=== PATIENT | male | born 1935 | race Caucasian/White ===

== ENCOUNTER 2017-06-04 15:14 | Inpatient (IN) | payer MEDICARE ==
[~2017-06-04] VITALS: Ht 175.3 cm; Wt 72.6 kg
[2017-06-04 15:43] LABS: BASO # 0.1 x10^3/uL (0.0-0.2); BASO % 1 % (0-3); EOS # 0.1 x10^3/uL (0.0-0.7); EOS % 2 % (0-3); HEMATOCRIT 46.6 % (39.0-53.0); HEMOGLOBIN 15.8 g/dL (13.0-17.5); LYMPH # 1.2 x10^3/uL (1.0-4.8); LYMPH % 18 % (24-48); MEAN CORPUSCULAR HEMOGLOBIN 31 pg (25-35); MEAN CORPUSCULAR HGB CONC 34 g/dL (31-37); MEAN CORPUSCULAR VOLUME 92 fL (79-100); MONO # 0.6 x10^3/uL (0.0-1.1); MONO % 9 % (0-9); NEUT # 4.8 x10^3uL (1.8-7.7); NEUT % 70 % (31-73); PLATELET COUNT 244 x10^3/uL (140-400); RED BLOOD COUNT 5.05 x10^6/uL (4.30-5.70); RED CELL DISTRIBUTION WIDTH 13.8 % (11.5-14.5); WHITE BLOOD COUNT 6.8 x10^3/uL (4.0-11.0)
[2017-06-04 15:55] LABS: ALBUMIN 3.9 g/dL (3.4-5.0); ALBUMIN/GLOBULIN RATIO 1.1 (1.0-1.7); CALCIUM 8.9 mg/dL (8.5-10.1); CREATININE 1.2 mg/dL (0.7-1.3); GFR 58.1; MAGNESIUM 2.3 mg/dL (1.8-2.4); POTASSIUM 3.4 mmol/L (3.5-5.1); TOTAL BILIRUBIN 0.4 mg/dL (0.2-1.0); TOTAL PROTEIN 7.4 g/dL (6.4-8.2)
[2017-06-04 16:01] LABS: BILIRUBIN,URINE NEG (NEG); CLARITY,URINE CLEAR; COLOR,URINE YELLOW; GLUCOSE,URINE NEG (NEG); NITRITE,URINE NEG (NEG); UROBILINOGEN,URINE 0.2 mg/dL (0.2 mg/dL)
[2017-06-04 16:02] LABS: BACTERIA,URINE 0 /HPF (0-FEW); SQUAMOUS EPITHELIAL CELL,UR OCC /LPF
--- NOTE | 2017-06-04 16:16 | PHYS DOC ---
Past History Past Medical History: CVA, Depression, Other Past Surgical History: Appendectomy Alcohol Use: None Drug Use: None Adult General Chief Complaint Chief Complaint: PSYCH EVALUATION [facility] Patient is a 82 year old M who presents medical clearance for psychiatric admission. Franco has no pain at this time. He denies shortness of breath or abdominal pain. He has no rash. He denies changes in his bowel or bladder habits. He has no other associated signs or symptoms. He has no other exacerbating or alleviating factors. Review of Systems Review of Systems Constitutional: Denies fever or chills [] Eyes: Denies change in visual acuity, redness, or eye pain [] HENT: Denies nasal congestion or sore throat [] Respiratory: Denies cough or shortness of breath [] Cardiovascular: No additional information not addressed in [facility] [] GI: Denies abdominal pain, nausea, vomiting, bloody stools or diarrhea [] : Denies dysuria or hematuria [] Musculoskeletal: Denies back pain or joint pain [] Integument: Denies rash or skin lesions [] Neurologic: Denies headache, focal weakness or sensory changes [] Endocrine: Denies polyuria or polydipsia [] Family History Family History Noncontributory Current Medications Current Medications Medications reviewed Allergies Allergies Allergies Coded Allergies Type Severity Reaction Last Updated Verified No Known Drug Allergies 06/04/17 No Physical Exam Physical Exam Constitutional: Well developed, well nourished, no acute distress, non-toxic appearance. [] HENT: Normocephalic, atraumatic, bilateral external ears normal, oropharynx moist, no oral exudates, nose normal. [] Eyes: PERRLA, EOMI, conjunctiva normal, no discharge. [] Neck: Normal range of motion, no tenderness, supple, no stridor. [] Cardiovascular:Heart rate regular rhythm, no murmur [] Lungs & Thorax: Bilateral breath sounds clear to auscultation [] Abdomen: Bowel sounds normal, soft, no tenderness, no masses, no pulsatile masses. [] Skin: Warm, dry, no erythema, no rash. [] Back: No tenderness, no CVA tenderness. [] Extremities: No tenderness, no cyanosis, no clubbing, ROM intact, no edema. [] Neurologic: Alert and oriented X 3, normal motor function, normal sensory function, no focal deficits noted. [] Current Patient Data Vital Signs Vital Signs Date Time Temp Pulse Resp B/P (MAP) Pulse Ox O2 Delivery O2 Flow Rate FiO2 06/04/17 15:42 98.0 94 20 99 Lab Results Laboratory Tests Test 06/04/17 15:15 06/04/17 15:26 Urine Collection Type Unknown Urine Color Yellow Urine Clarity Clear Urine pH 6.5 Urine Specific [place] 1.015 Urine Protein Neg (NEG-TRACE) Urine Glucose (UA) Neg mg/dL (NEG) Urine Ketones (Stick) Trace mg/dL (NEG) Urine Blood Neg (NEG) Urine Nitrite Neg (NEG) Urine Bilirubin Neg (NEG) Urine Urobilinogen Dipstick 0.2 mg/dL (0.2 mg/dL) Urine Leukocyte Esterase Trace (NEG) Urine RBC 3-5 /HPF (0-2) Urine WBC 5-10 /HPF (0-4) Urine Squamous Epithelial Cells Occ /LPF Urine Bacteria 0 /HPF (0-FEW) Urine Mucus Mod /LPF White Blood Count 6.8 x10^3/uL (4.0-11.0) Red Blood Count 5.05 x10^6/uL (4.30-5.70) Hemoglobin 15.8 g/dL (13.0-17.5) Hematocrit 46.6 % (39.0-53.0) Mean Corpuscular Volume 92 fL (79-100) Mean Corpuscular Hemoglobin 31 pg (25-35) Mean Corpuscular Hemoglobin Concent 34 g/dL (31-37) Red Cell Distribution Width 13.8 % (11.5-14.5) Platelet Count 244 x10^3/uL (140-400) Neutrophils (%) (Auto) 70 % (31-73) Lymphocytes (%) (Auto) 18 % (24-48) L Monocytes (%) (Auto) 9 % (0-9) Eosinophils (%) (Auto) 2 % (0-3) Basophils (%) (Auto) 1 % (0-3) Neutrophils # (Auto) 4.8 x10^3uL (1.8-7.7) Lymphocytes # (Auto) 1.2 x10^3/uL (1.0-4.8) Monocytes # (Auto) 0.6 x10^3/uL (0.0-1.1) Eosinophils # (Auto) 0.1 x10^3/uL (0.0-0.7) Basophils # (Auto) 0.1 x10^3/uL (0.0-0.2) Sodium Level 143 mmol/L (136-145) Potassium Level 3.4 mmol/L (3.5-5.1) L Chloride Level 105 mmol/L (98-107) Carbon Dioxide Level 31 mmol/L (21-32) Anion Gap 7 (6-14) Blood Urea Nitrogen 15 mg/dL (8-26) Creatinine 1.2 mg/dL (0.7-1.3) Estimated GFR (Cockcroft-Gault) 58.1 BUN/Creatinine Ratio 13 (6-20) Glucose Level 80 mg/dL (70-99) Calcium Level 8.9 mg/dL (8.5-10.1) Magnesium Level 2.3 mg/dL (1.8-2.4) Total Bilirubin 0.4 mg/dL (0.2-1.0) Aspartate Amino Transferase (AST) 21 U/L (15-37) Alanine Aminotransferase (ALT) 31 U/L (16-63) Alkaline Phosphatase 97 U/L (46-116) Total Protein 7.4 g/dL (6.4-8.2) Albumin 3.9 g/dL (3.4-5.0) Albumin/Globulin Ratio 1.1 (1.0-1.7) EKG EKG Normal sinus rhythm Radiology/Procedures Radiology/Procedures [] Course & Med Decision Making Course & Med Decision Making Pertinent Labs and Imaging studies reviewed. (See chart for details) [] Dragon Disclaimer Dragon Disclaimer This chart was dictated in whole or in part using Voice Recognition software in a busy, high-work load, and often noisy Emergency Department environment. It may contain unintended and wholly unrecognized errors or omissions. Departure Departure: Impression: Primary Impression: Encounter for medical screening examination Disposition: 65 XFER TO PSYCH HOSP/UNIT Condition: STABLE Referrals: NON,STAFF (PCP) CRYS PEREIRA MD Jun 04, 2017 16:16
[2017-06-04 17:46] VITALS: BP 157/96
[2017-06-04] MEDS ORDERED: MAGNESIUM HYDROXIDE 2,400 MG/30 ML ORAL.SUSP. PO PRN (18:00)
[2017-06-04] MEDS ORDERED: METHYL SALICYLATE/MENTHOL TOPICAL OINTMENT 29GM TUBE. TP PRN (18:00)
[2017-06-04] MEDS ORDERED: ACETAMINOPHEN 325 MG TABLET PO PRN (18:00)
[2017-06-04] MEDS ORDERED: MAG HYDROX/AL HYDROX/SIMETH 30 ML ORAL.SUSP PO PRN (18:00)
--- NOTE | 2017-06-04 20:27 | PDOC ---
Exam Toni Demential Exam: Toni Note: Please also refer to the separate dictated note~for this date of service dictated separately.~Patient seen individually. Discussed the patient with Nursing staff reviewed the chart.~Reviewed interim history and current functioning. Reviewed vital signs,~Labs/ Radiology~and current medications noted below. Continue current treatment with the changes noted in the dictated addendum note Assessment: Vital Signs: Vital Signs Date Time Temp Pulse Resp B/P (MAP) Pulse Ox O2 Delivery O2 Flow Rate FiO2 06/04/17 17:46 97.9 95 20 157/96 (116) 98 I&O Intake and Output 06/05/17 07:00 Intake Total 240 ml Balance 240 ml Intake Oral 240 ml Labs: Laboratory Tests Test 06/04/17 15:15 06/04/17 15:26 Urine Collection Type Unknown Urine Color Yellow Urine Clarity Clear Urine pH 6.5 Urine Specific [place] 1.015 Urine Protein Neg (NEG-TRACE) Urine Glucose (UA) Neg mg/dL (NEG) Urine Ketones (Stick) Trace mg/dL (NEG) Urine Blood Neg (NEG) Urine Nitrite Neg (NEG) Urine Bilirubin Neg (NEG) Urine Urobilinogen Dipstick 0.2 mg/dL (0.2 mg/dL) Urine Leukocyte Esterase Trace (NEG) Urine RBC 3-5 /HPF (0-2) Urine WBC 5-10 /HPF (0-4) Urine Squamous Epithelial Cells Occ /LPF Urine Bacteria 0 /HPF (0-FEW) Urine Mucus Mod /LPF White Blood Count 6.8 x10^3/uL (4.0-11.0) Red Blood Count 5.05 x10^6/uL (4.30-5.70) Hemoglobin 15.8 g/dL (13.0-17.5) Hematocrit 46.6 % (39.0-53.0) Mean Corpuscular Volume 92 fL (79-100) Mean Corpuscular Hemoglobin 31 pg (25-35) Mean Corpuscular Hemoglobin Concent 34 g/dL (31-37) Red Cell Distribution Width 13.8 % (11.5-14.5) Platelet Count 244 x10^3/uL (140-400) Neutrophils (%) (Auto) 70 % (31-73) Lymphocytes (%) (Auto) 18 % (24-48) L Monocytes (%) (Auto) 9 % (0-9) Eosinophils (%) (Auto) 2 % (0-3) Basophils (%) (Auto) 1 % (0-3) Neutrophils # (Auto) 4.8 x10^3uL (1.8-7.7) Lymphocytes # (Auto) 1.2 x10^3/uL (1.0-4.8) Monocytes # (Auto) 0.6 x10^3/uL (0.0-1.1) Eosinophils # (Auto) 0.1 x10^3/uL (0.0-0.7) Basophils # (Auto) 0.1 x10^3/uL (0.0-0.2) Sodium Level 143 mmol/L (136-145) Potassium Level 3.4 mmol/L (3.5-5.1) L Chloride Level 105 mmol/L (98-107) Carbon Dioxide Level 31 mmol/L (21-32) Anion Gap 7 (6-14) Blood Urea Nitrogen 15 mg/dL (8-26) Creatinine 1.2 mg/dL (0.7-1.3) Estimated GFR (Cockcroft-Gault) 58.1 BUN/Creatinine Ratio 13 (6-20) Glucose Level 80 mg/dL (70-99) Calcium Level 8.9 mg/dL (8.5-10.1) Magnesium Level 2.3 mg/dL (1.8-2.4) Total Bilirubin 0.4 mg/dL (0.2-1.0) Aspartate Amino Transferase (AST) 21 U/L (15-37) Alanine Aminotransferase (ALT) 31 U/L (16-63) Alkaline Phosphatase 97 U/L (46-116) Total Protein 7.4 g/dL (6.4-8.2) Albumin 3.9 g/dL (3.4-5.0) Albumin/Globulin Ratio 1.1 (1.0-1.7) Current Medications: Meds: Current Medications Acetaminophen (Tylenol) 650 mg PRN Q6HRS PRN PO PAIN / TEMP; Start 06/04/17 at 18:00 Multi-Ingredient Ointment (Analgesic [place]) 1 janell PRN QID PRN TP MUSCLE PAIN; Start 06/04/17 at 18:00 Al Hydroxide/Mg Hydroxide (Mylanta Plus Xs) 15 ml PRN AFTMEALHC PRN PO DYSPEPSIA; Start 06/04/17 at 18:00 Magnesium Hydroxide (Milk Of Magnesia) 2,400 mg PRN QHS PRN PO CONSTIPATION; Start 06/04/17 at 18:00 Mirtazapine (Remeron) 7.5 mg QHS PO ; Start 06/04/17 at 21:00 Sertraline HCl (Zoloft) 50 mg DAILY PO ; Start 06/05/17 at 09:00 Diagnosis: Problems: (1) Anxiety disorder (2) Dementia in Alzheimer's disease with delusions (3) Dementia in Alzheimer's disease with depression (4) Dementia, vascular, with delusions (5) Impulse control disorder (6) Dementia, vascular, with depression ESTEFANIA HOLT MD Jun 04, 2017 20:27
[2017-06-04] MEDS: MIRTAZAPINE 7.5 MG TABLET. PO SCH (20:45)
[2017-06-05] MEDS: traZODone 100 MG TABLET. PO PRN ×2 (00:04→19:12)
[2017-06-05] MEDS ORDERED: RIVA1PAT5 TD (01:18)
[2017-06-05] MEDS ORDERED: SERT25TA PO (01:18)
[2017-06-05] MEDS: RIVASTIGMINE 13.3MG PATCH. TD SCH (09:08)
[2017-06-05] MEDS: SERTRALINE 50 MG TABLET. PO SCH (09:08)
--- NOTE | 2017-06-05 10:42 | RAD ---
Indication change in mental status. 0 noncontrast images of the head were obtained. No prior imaging of the head is available. The calvarium appears unremarkable. The visualized paranasal sinuses are unremarkable. There is no subdural or epidural hematoma. There is generalized atrophy. There is some increased lucency in the deep white matter likely reflecting microvascular disease. There is mild hydrocephalus. There is no mass or midline shift. No hemorrhage is seen. An acute intracranial finding is not apparent. IMPRESSION: Chronic changes. Mild hydrocephalus. No acute finding seen PQRS Compliance Statement: One or more of the following individualized dose reduction techniques were utilized for this examination: 1. Automated exposure control 2. Adjustment of the mA and/or kV according to patient size 3. Use of iterative reconstruction technique
--- NOTE | 2017-06-05 12:48 | HP ---
ADMIT DATE: 06/04/2017 PSYCHIATRIC ADMISSION HISTORY/EVALUATION This late entry, date of service 06/04/2017, covers elements not covered in my initial note of 06/04/2017. I met with the patient evening of 06/04/2017. Discussed with nursing staff several times during the day. Prior to the patient's admission to gather historical information for admission criteria evaluation including information from Karishma Lloyd, nurse practitioner, patient's outpatient provider and family and after the patient's admission to the unit as well. IDENTIFYING DATA: The patient is an 82-year-old male referred by Karishma Lloyd, nurse practitioner, his outpatient provider at the [facility] and admitted by his daughter, Ying Gomez, power of silver holloware assembler and his , Bruce Thomas. On account of worsening symptoms of depression, confusion, having multiple falls, mood swings, being aggressive towards the family, marked insomnia. The patient had failed outpatient psychiatric interventions. CHIEF COMPLAINT: "There is nothing wrong with me." HISTORY OF PRESENT ILLNESS: The patient has a history of some short term memory deficits, do at times during the day he can seem quite oriented, at other times he is barely oriented to situation. He has been increasingly angry, paranoid, suspicious with his family. Behaviors noted to be unmanageable. He has been agitated, complains of insomnia, having frequent falls and tremors, although he denies any problems whatsoever. Symptoms have worsened since his stroke in 09/2015 and he has fecal urgency as part of this as well. PAST PSYCHIATRIC HISTORY: As above. MEDICAL HISTORY: Status post CVA, right-sided stroke 10/04, repeated falls, tremors with a family history of Parkinson's, bowel urgency. DRUG ALLERGIES: Negative. CODE STATUS: Full. DIET: Regular, AMBULATES: Ad yolanda. CURRENT PSYCHOTROPICS: Exelon patch 13.3 mg a day, Zoloft 25 mg a day. He was on Abilify 2 mg a day, has since been discontinued. FAMILY HISTORY: Positive for suicide in his son/grandson and another child attempted suicide. SOCIAL HISTORY: The patient is , lives at home with his . 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 No alcohol or drug abuse history. MENTAL STATUS EXAMINATION: The patient was seen individually evening of 06/04/2017. He is oriented to himself, at times to situation, though at other times he believes this is his house and other people are intruding in it per nursing report. To the nursing staff he indicated the year is 2016, but when I asked him, he felt the year was 192. Speech is coherent, rapid at times. Abstraction fair, computation impaired, language function intact. Short term memory impaired. Mood and affect remained somewhat labile, anxious. No active suicidal or homicidal ideation. After I had evaluated the patient and before I left the unit, the patient became quite agitated, was loud, threatening towards the nursing staff, tried to follow me around the unit, believed everyone was in his house here and wanted them out, quite delusional, suspicious, but when the acute episode passes, he is more oriented. REVIEW OF SYSTEMS: No CV, , pulmonary, eye, ENT system symptoms on review. Gait unsteady. IMPRESSION: Major neurocognitive disorder, possibly vascular, rule out Lewy body with depression, delusion, behavioral disturbance; anxiety disorder, unspecified; impulse control disorder, unspecified; psychotic disorder, unspecified. Rest as above. PLAN: Admit to the geropsychiatry unit at [facility]. I will see the patient daily individually from a psychiatric standpoint, medical followup per Dr. Moffett/Dr. Rodarte. Continue the patient on his current psychotropics, start Remeron 7.5 mg p.o. at bedtime and increase Zoloft to 50 mg a day. Neurology consult with Dr. Duarte to assess for Parkinson's and treat if indicated. We will check a CT head to make sure there is no recent change in his cerebrovascular status, status post CVA to account for his change in mentation and aggression. We will make further treatment recommendations post baseline assessment. MAN Alo HOLT MD DR: ANJALI/taty JOB#: [id number] / [id number]
[2017-06-05 14:37] LABS: THYROID STIM HORMONE (TSH) 3.723 uIU/mL (0.358-3.740)
[2017-06-05 16:21] VITALS: BP 93/64
[2017-06-05] MEDS: MIRTAZAPINE 7.5 MG TABLET. PO SCH (19:12)
[2017-06-05] MEDS: MEMANTINE 5 MG TABLET. PO SCH (19:31)
[2017-06-05] MEDS: QUEtiapine 25 MG TABLET. PO SCH (19:32)
--- NOTE | 2017-06-05 20:57 | PDOC ---
Exam Toni Demential Exam: Toni Note: Please also refer to the separate dictated note~for this date of service dictated separately.~Patient seen individually. Discussed the patient with Nursing staff reviewed the chart.~Reviewed interim history and current functioning. Reviewed vital signs,~Labs/ Radiology~and current medications noted below. Continue current treatment with the changes noted in the dictated addendum note Assessment: Vital Signs: Vital Signs Date Time Temp Pulse Resp B/P (MAP) Pulse Ox O2 Delivery O2 Flow Rate FiO2 06/05/17 16:21 98.0 92 18 93/64 (74) 97 I&O Intake and Output 06/06/17 06:59 Intake Total 1080 ml Balance 1080 ml Intake Oral 1080 ml Current Medications: Meds: Current Medications Acetaminophen (Tylenol) 650 mg PRN Q6HRS PRN PO PAIN / TEMP; Start 06/04/17 at 18:00 Multi-Ingredient Ointment (Analgesic [place]) 1 janell PRN QID PRN TP MUSCLE PAIN; Start 06/04/17 at 18:00 Al Hydroxide/Mg Hydroxide (Mylanta Plus Xs) 15 ml PRN AFTMEALHC PRN PO DYSPEPSIA; Start 06/04/17 at 18:00 Magnesium Hydroxide (Milk Of Magnesia) 2,400 mg PRN QHS PRN PO CONSTIPATION; Start 06/04/17 at 18:00 Mirtazapine (Remeron) 7.5 mg QHS PO Last administered on 06/05/17 19:12; Start 06/04/17 at 21:00 Sertraline HCl (Zoloft) 50 mg DAILY PO Last administered on 06/05/17 09:08; Start 06/05/17 at 09:00 Trazodone HCl (Desyrel) 50 mg PRN QHS PRN PO insomnia Last administered on 19:12; Start 06/05/17 at 00:00 Olanzapine (ZyPREXA ZYDIS) 2.5 mg PRN Q2HR PRN PO agitation, psychosis Last administered on 06/05/17 19:12; Start 06/05/17 at 00:00 Rivastigmine (Exelon 13.3mg) 1 patch DAILY TD Last administered on 06/05/17 09:08; Start 06/05/17 at 09:00 Memantine (Namenda) 5 mg BID PO Last administered on 06/05/17 19:31; Start 06/05/17 at 21:00 Quetiapine Fumarate (SEROquel) 25 mg QHS PO Last administered on 06/05/17 19: 32; Start 06/05/17 at 21:00 Active Scripts Active Reported Zoloft (Sertraline Hcl) 25 Mg Tablet 25 Mg PO DAILY PRN Zoloft (Sertraline Hcl) 25 Mg Tablet 25 Mg PO DAILY EXELON 13.3mg/24hr (Rivastigmine) 1 Each Patch.td24 1 Patch TD DAILY Diagnosis: Problems: (1) Anxiety disorder (2) Dementia in Alzheimer's disease with delusions (3) Dementia in Alzheimer's disease with depression (4) Dementia, vascular, with delusions (5) Dementia, vascular, with depression (6) Impulse control disorder ESTEFANIA HOLT MD Jun 05, 2017 20:57
[2017-06-06 06:37] VITALS: BP 127/91
--- NOTE | 2017-06-06 10:31 | EKG ---
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
[2017-06-06] MEDS: RIVASTIGMINE 13.3MG PATCH. TD SCH (11:54)
[2017-06-06] MEDS: MEMANTINE 5 MG TABLET. PO SCH ×2 (11:54→19:30)
[2017-06-06] MEDS: SERTRALINE 50 MG TABLET. PO SCH (11:54)
[2017-06-06] MEDS: QUEtiapine 25 MG TABLET. PO SCH ×3 (14:00→19:30)
[2017-06-06 16:23] VITALS: BP 144/83
--- NOTE | 2017-06-06 17:17 | HP ---
ADMIT DATE: 06/04/2017 REASON FOR ADMISSION TO THE SENIOR BEHAVIORAL UNIT: This is an 82-year-old male who I believe has lived independently with his who has had increasing falls, depression, mood swings, aggressiveness with family, insomnia and agitated. The patient himself insisted that the hospital where he is right now is his home and he said he had not seen his this morning. PAST MEDICAL HISTORY: Mild stroke, insomnia. 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 MEDICATIONS: Omeprazole 2 mg daily, Exelon patch, rivastigmine 13.3 mg patch and sertraline 25 mg a day. Again, the patient is able to give really a full history. PAST SURGICAL HISTORY: Tonsillectomy, bilateral cataracts, appendectomy. SOCIAL HISTORY: The patient states he has a son who committed suicide many years ago. He states he smoked a little in college, then quit. 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 He grew up in, [place], [place], knows his date of . SUBJECTIVE: REVIEW OF SYSTEMS: Enquired about his tremor and he states, "if you were here, you would have a tremor too." OBJECTIVE: VITAL SIGNS: Blood pressure 127/91, pulse 79, respirations 16, pulse ox 96% on room air, temperature 98. GENERAL: Complexion is quite cassie. HEENT: He has spider veins on his nose. His pupils are equal, round, react to light. Extraocular muscles intact. His vision is 20/30 without glasses. He is not color blind. He can identify 2 fingers in the field of vision, he has a right eye entropion. Hearing, his TMs are slightly occluded by wax. LUNGS: Clear. CARDIOVASCULAR: Regular rhythm and rate. ABDOMEN: Soft, nontender. EXTREMITIES: Without edema. MUSCULOSKELETAL: The patient's gait is very unsteady. He is very tremulous. He has a severe tremor. He can follow directions very well, was calm and cooperative and his cranial nerves appear to be intact with the exception of no hearing in the right ear. LABORATORY DATA: CBC is normal. Chemistry, slightly low vitamin D of 28.6. 724 B12, and iron studies normal, slightly low potassium at 3.4, magnesium normal. Normal TSH. ASSESSMENT: 1. Mild neurocognitive impairment. 2. History of stroke. 3. Vitamin D insufficiency. 4. Mild hypokalemia. 5. History of depression. 6. Insomnia. PLAN: Treat his medical conditions adding some vitamin D, follow along with Dr. Alonzo. ARTEMIO KITCHEN DO DR: VIDA/taty JOB#: [id number] / [id number]
[2017-06-06] MEDS: CALCIUM CARB/VIT D3 500/200 TABLET PO SCH (17:24)
[2017-06-06] MEDS: MIRTAZAPINE 7.5 MG TABLET. PO SCH (19:30)
--- NOTE | 2017-06-06 21:00 | PDOC ---
Exam Toni Demential Exam: Toni Note: Please also refer to the separate dictated note~for this date of service dictated separately.~Patient seen individually. Discussed the patient with Nursing staff reviewed the chart.~Reviewed interim history and current functioning. Reviewed vital signs,~Labs/ Radiology~and current medications noted below. Continue current treatment with the changes noted in the dictated addendum note Assessment: Vital Signs: Vital Signs Date Time Temp Pulse Resp B/P (MAP) Pulse Ox O2 Delivery O2 Flow Rate FiO2 06/06/17 16:23 98.2 92 20 144/83 (103) 97 I&O Intake and Output 06/07/17 07:00 Intake Total 480 ml Balance 480 ml Intake Oral 480 ml Current Medications: Meds: Current Medications Acetaminophen (Tylenol) 650 mg PRN Q6HRS PRN PO PAIN / TEMP; Start 06/04/17 at 18:00 Multi-Ingredient Ointment (Analgesic [place]) 1 janell PRN QID PRN TP MUSCLE PAIN; Start 06/04/17 at 18:00 Al Hydroxide/Mg Hydroxide (Mylanta Plus Xs) 15 ml PRN AFTMEALHC PRN PO DYSPEPSIA; Start 06/04/17 at 18:00 Magnesium Hydroxide (Milk Of Magnesia) 2,400 mg PRN QHS PRN PO CONSTIPATION; Start 06/04/17 at 18:00 Mirtazapine (Remeron) 7.5 mg QHS PO Last administered on 06/06/17 19:30; Start 06/04/17 at 21:00 Sertraline HCl (Zoloft) 50 mg DAILY PO Last administered on 06/06/17 11:54; Start 06/05/17 at 09:00 Trazodone HCl (Desyrel) 50 mg PRN QHS PRN PO insomnia Last administered on 19:12; Start 06/05/17 at 00:00 Olanzapine (ZyPREXA ZYDIS) 2.5 mg PRN Q2HR PRN PO agitation, psychosis Last administered on 06/05/17 19:12; Start 06/05/17 at 00:00 Rivastigmine (Exelon 13.3mg) 1 patch DAILY TD Last administered on 06/06/17 11:54; Start 06/05/17 at 09:00 Memantine (Namenda) 5 mg BID PO Last administered on 06/06/17 19:30; Start 06/05/17 at 21:00 Quetiapine Fumarate (SEROquel) 25 mg QHS PO Last administered on 06/06/17 19: 30; Start 06/05/17 at 21:00 Quetiapine Fumarate (SEROquel) 12.5 mg BID@1400,1700 PO Last administered on 17:24; Start 06/06/17 at 14:00 Calcium/Vitamin D ([place] D 500mg/ 200uts) 1 tab BIDWMEALS PO Last administered on 06/06/17 17:24; Start 06/06/17 at 17:00 Active Scripts Active Reported Zoloft (Sertraline Hcl) 25 Mg Tablet 25 Mg PO DAILY PRN Zoloft (Sertraline Hcl) 25 Mg Tablet 25 Mg PO DAILY EXELON 13.3mg/24hr (Rivastigmine) 1 Each Patch.td24 1 Patch TD DAILY Diagnosis: Problems: (1) Anxiety disorder (2) Dementia in Alzheimer's disease with delusions (3) Dementia in Alzheimer's disease with depression (4) Dementia, vascular, with delusions (5) Dementia, vascular, with depression (6) Impulse control disorder ESTEFANIA HOLT MD Jun 06, 2017 21:00
[2017-06-07 00:10] LABS: HEMOGLOBIN A1C 5.2 % (4.8-5.6)
[2017-06-07 05:57] VITALS: BP 143/93
[2017-06-07] MEDS: SERTRALINE 50 MG TABLET. PO SCH (09:21)
[2017-06-07] MEDS: MEMANTINE 5 MG TABLET. PO SCH ×2 (09:22→19:45)
[2017-06-07] MEDS: RIVASTIGMINE 13.3MG PATCH. TD SCH (09:22)
[2017-06-07] MEDS: CALCIUM CARB/VIT D3 500/200 TABLET PO SCH ×2 (09:22→16:49)
--- NOTE | 2017-06-07 09:29 | PN ---
DATE: 06/05/2017 PSYCHIATRIC PROGRESS NOTE This late entry 06/05/2017 covers elements not covered in my initial note of 06/05/2017. SUBJECTIVE: I met with the patient in the evening of 06/05/2017. The patient appears quite oriented, often during the day and later in the day he appears extremely confused, delusional with marked mood lability. On very close review of his history and symptoms, there is a question of Lewy body dementia. REVIEW OF SYSTEMS: No CV, , pulmonary, eye, ENT system symptoms on review. Reliability poor. MENTAL STATUS EXAM: Oriented to himself and situation. Speech coherent, abstraction fair, computation impaired, language function intact. Mood and affect still somewhat anxious, labile. LABORATORIES: Reviewed. IMPRESSION: Unchanged from initial note. PLAN: Start Seroquel 25 mg p.o. at bedtime, Namenda 5 mg twice a day, Exelon patch continue 13.3 mg a day, continue Remeron and Zoloft together with trazodone p.r.n., Zyprexa p.r.n. Review drug interactions, risk/benefit ratio favors no further change. MAN Alo HOLT MD DR: ANJALI/taty JOB#: [id number] / [id number]
--- NOTE | 2017-06-07 11:32 | PN ---
DATE: ADDENDUM Prior evening, the patient received Zyprexa because he is quite delusional, believes staff was in his house, received trazodone and Zyprexa, still slept just 4 hours, was looking for a driver's education instructor to take him home right after he said everyone was in his house right here. Often during the day, he is well oriented. FAMILY HISTORY: Positive for suicide in son at age 29, family history of depression positive. Past psychiatric history is in inpatient hospital in 2009 with diagnosis of depression. MAN Alo HOLT MD DR: ANJALI/taty JOB#: [id number] / [id number]
[2017-06-07] MEDS: QUEtiapine 25 MG TABLET. PO SCH ×3 (12:36→19:45)
[2017-06-07 16:36] VITALS: BP 119/75
[2017-06-07] MEDS: MIRTAZAPINE 7.5 MG TABLET. PO SCH (19:45)
--- NOTE | 2017-06-07 20:57 | PDOC ---
Exam Toni Demential Exam: Toni Note: Please also refer to the separate dictated note~for this date of service dictated separately.~Patient seen individually. Discussed the patient with Nursing staff reviewed the chart.~Reviewed interim history and current functioning. Reviewed vital signs,~Labs/ Radiology~and current medications noted below. Continue current treatment with the changes noted in the dictated addendum note Assessment: Vital Signs: Vital Signs Date Time Temp Pulse Resp B/P (MAP) Pulse Ox O2 Delivery O2 Flow Rate FiO2 06/07/17 16:36 98.4 86 16 119/75 (90) 98 I&O Intake and Output 06/08/17 07:00 Intake Total 360 ml Balance 360 ml Intake Oral 360 ml Current Medications: Meds: Current Medications Acetaminophen (Tylenol) 650 mg PRN Q6HRS PRN PO PAIN / TEMP; Start 06/04/17 at 18:00 Multi-Ingredient Ointment (Analgesic [place]) 1 janell PRN QID PRN TP MUSCLE PAIN; Start 06/04/17 at 18:00 Al Hydroxide/Mg Hydroxide (Mylanta Plus Xs) 15 ml PRN AFTMEALHC PRN PO DYSPEPSIA; Start 06/04/17 at 18:00 Magnesium Hydroxide (Milk Of Magnesia) 2,400 mg PRN QHS PRN PO CONSTIPATION; Start 06/04/17 at 18:00 Mirtazapine (Remeron) 7.5 mg QHS PO Last administered on 06/07/17 19:45; Start 06/04/17 at 21:00 Sertraline HCl (Zoloft) 50 mg DAILY PO Last administered on 06/07/17 09:21; Start 06/05/17 at 09:00 Trazodone HCl (Desyrel) 50 mg PRN QHS PRN PO insomnia Last administered on 19:12; Start 06/05/17 at 00:00; Stop 06/07/17 at 14:43; Status DC Olanzapine (ZyPREXA ZYDIS) 2.5 mg PRN Q2HR PRN PO agitation, psychosis Last administered on 06/05/17 19:12; Start 06/05/17 at 00:00 Rivastigmine (Exelon 13.3mg) 1 patch DAILY TD Last administered on 06/07/17 09:22; Start 06/05/17 at 09:00 Memantine (Namenda) 5 mg BID PO Last administered on 06/07/17 19:45; Start 06/05/17 at 21:00 Quetiapine Fumarate (SEROquel) 25 mg QHS PO Last administered on 06/07/17 19: 45; Start 06/05/17 at 21:00 Quetiapine Fumarate (SEROquel) 12.5 mg BID@1400,1700 PO Last administered on 16:49; Start 06/06/17 at 14:00 Calcium/Vitamin D (Oscal D 500mg/ 200uts) 1 tab BIDWMEALS PO Last administered on 06/07/17 16:49; Start 06/06/17 at 17:00 Trazodone HCl (Desyrel) 50 mg PRN QHS PRN PO INSOMNIA; Start 06/07/17 at 14:45 Active Scripts Active Reported Zoloft (Sertraline Hcl) 25 Mg Tablet 25 Mg PO DAILY PRN Zoloft (Sertraline Hcl) 25 Mg Tablet 25 Mg PO DAILY EXELON 13.3mg/24hr (Rivastigmine) 1 Each Patch.td24 1 Patch TD DAILY Diagnosis: Problems: (1) Anxiety disorder (2) Dementia in Alzheimer's disease with delusions (3) Dementia in Alzheimer's disease with depression (4) Dementia, vascular, with delusions (5) Dementia, vascular, with depression (6) Impulse control disorder ESTEFANIA HOLT MD Jun 07, 2017 20:57
[2017-06-07] MEDS: traZODone 50 MG TABLET. PO PRN (21:11)
[2017-06-08 06:00] VITALS: BP 134/86
[2017-06-08] MEDS: CALCIUM CARB/VIT D3 500/200 TABLET PO SCH ×2 (09:08→14:26)
[2017-06-08] MEDS: MEMANTINE 5 MG TABLET. PO SCH ×2 (09:08→19:20)
[2017-06-08] MEDS: SERTRALINE 50 MG TABLET. PO SCH (09:08)
[2017-06-08] MEDS: RIVASTIGMINE 13.3MG PATCH. TD SCH (09:09)
[2017-06-08] MEDS: QUEtiapine 25 MG TABLET. PO SCH ×3 (14:27→19:21)
[2017-06-08 16:29] VITALS: BP 150/94
[2017-06-08] MEDS: MIRTAZAPINE 7.5 MG TABLET. PO SCH (19:21)
--- NOTE | 2017-06-08 22:01 | PDOC ---
Exam Toni Demential Exam: Toni Note: Please also refer to the separate dictated note~for this date of service dictated separately.~Patient seen individually. Discussed the patient with Nursing staff reviewed the chart.~Reviewed interim history and current functioning. Reviewed vital signs,~Labs/ Radiology~and current medications noted below. Continue current treatment with the changes noted in the dictated addendum note Assessment: Vital Signs: Vital Signs Date Time Temp Pulse Resp B/P (MAP) Pulse Ox O2 Delivery O2 Flow Rate FiO2 06/08/17 16:29 98.6 91 21 150/94 (112) 94 06/08/17 06:00 Room Air I&O Intake and Output 06/09/17 07:00 Intake Total 360 ml Balance 360 ml Intake Oral 360 ml Current Medications: Meds: Current Medications Acetaminophen (Tylenol) 650 mg PRN Q6HRS PRN PO PAIN / TEMP; Start 06/04/17 at 18:00 Multi-Ingredient Ointment (Analgesic [place]) 1 janell PRN QID PRN TP MUSCLE PAIN; Start 06/04/17 at 18:00 Al Hydroxide/Mg Hydroxide (Mylanta Plus Xs) 15 ml PRN AFTMEALHC PRN PO DYSPEPSIA; Start 06/04/17 at 18:00 Magnesium Hydroxide (Milk Of Magnesia) 2,400 mg PRN QHS PRN PO CONSTIPATION; Start 06/04/17 at 18:00 Mirtazapine (Remeron) 7.5 mg QHS PO Last administered on 06/08/17 19:21; Start 06/04/17 at 21:00 Sertraline HCl (Zoloft) 50 mg DAILY PO Last administered on 06/08/17 09:08; Start 06/05/17 at 09:00 Trazodone HCl (Desyrel) 50 mg PRN QHS PRN PO insomnia Last administered on 19:12; Start 06/05/17 at 00:00; Stop 06/07/17 at 14:43; Status DC Olanzapine (ZyPREXA ZYDIS) 2.5 mg PRN Q2HR PRN PO agitation, psychosis Last administered on 06/08/17 17:04; Start 06/05/17 at 00:00 Rivastigmine (Exelon 13.3mg) 1 patch DAILY TD Last administered on 06/08/17 09:09; Start 06/05/17 at 09:00 Memantine (Namenda) 5 mg BID PO Last administered on 06/08/17 19:20; Start 06/05/17 at 21:00 Quetiapine Fumarate (SEROquel) 25 mg QHS PO Last administered on 06/08/17 19: 21; Start 06/05/17 at 21:00 Quetiapine Fumarate (SEROquel) 12.5 mg BID@1400,1700 PO Last administered on 17:28; Start 06/06/17 at 14:00 Calcium/Vitamin D (Oscal D 500mg/ 200uts) 1 tab BIDWMEALS PO Last administered on 06/08/17 14:26; Start 06/06/17 at 17:00 Trazodone HCl (Desyrel) 50 mg PRN QHS PRN PO INSOMNIA Last administered on 21:11; Start 06/07/17 at 14:45 Active Scripts Active Reported Zoloft (Sertraline Hcl) 25 Mg Tablet 25 Mg PO DAILY PRN Zoloft (Sertraline Hcl) 25 Mg Tablet 25 Mg PO DAILY EXELON 13.3mg/24hr (Rivastigmine) 1 Each Patch.td24 1 Patch TD DAILY Diagnosis: Problems: (1) Anxiety disorder (2) Dementia in Alzheimer's disease with delusions (3) Dementia in Alzheimer's disease with depression (4) Dementia, vascular, with delusions (5) Dementia, vascular, with depression (6) Impulse control disorder ESTEFANIA HOLT MD Jun 08, 2017 22:01
[2017-06-08] MEDS: traZODone 50 MG TABLET. PO PRN (22:02)
[2017-06-09 06:07] VITALS: BP 162/81
[2017-06-09] MEDS: MEMANTINE 5 MG TABLET. PO SCH ×2 (09:24→19:56)
[2017-06-09] MEDS: SERTRALINE 50 MG TABLET. PO SCH (09:24)
[2017-06-09] MEDS: CALCIUM CARB/VIT D3 500/200 TABLET PO SCH ×2 (09:24→17:00)
[2017-06-09] MEDS: RIVASTIGMINE 13.3MG PATCH. TD SCH (09:25)
[2017-06-09] MEDS: QUEtiapine 25 MG TABLET. PO SCH ×3 (14:51→19:56)
[2017-06-09] MEDS ORDERED: hydrOXYzine HCL 25 MG TABLET PO PRN (15:00)
[2017-06-09] MEDS: MIRTAZAPINE 7.5 MG TABLET. PO SCH (19:56)
[2017-06-09] MEDS: traZODone 50 MG TABLET. PO PRN (19:58)
[2017-06-10 06:11] VITALS: BP 163/85
[2017-06-10] MEDS: CALCIUM CARB/VIT D3 500/200 TABLET PO SCH ×3 (08:00→17:07)
[2017-06-10] MEDS: RIVASTIGMINE 13.3MG PATCH. TD SCH ×2 (08:31→08:54)
[2017-06-10] MEDS: SERTRALINE 50 MG TABLET. PO SCH ×3 (08:31→10:13)
[2017-06-10] MEDS: MEMANTINE 5 MG TABLET. PO SCH ×3 (08:31→19:18)
--- NOTE | 2017-06-10 11:24 | PN ---
DATE: 06/06/2017 PSYCHIATRIC PROGRESS NOTE This late entry, date of service, 06/06/2017 covers elements not covered in my initial note of 06/06/2017. SUBJECTIVE: The patient was staffed at a treatment team meeting with the entire team morning of 06/06/2017, seen individually evening of 06/06/2017. The patient has been somewhat drowsy during the day, delusional, agitated, difficult to redirect at times. On the SLUMS scale to be completed later in the day, we will have some assessment of his cognition. The previous evening he was quite agitated, slept in the quiet room; door opened. REVIEW OF SYSTEMS: No CV, , eye, ENT or pulmonary system symptoms on review. Reliability somewhat poor. MENTAL STATUS EXAM: Oriented to himself and situation. Speech has moderate latency, often responses monosyllabic. Abstraction fair. Computation is somewhat impaired, language function intact, short term memory impaired. No active suicidal or homicidal ideation. LABORATORIES: Reviewed. IMPRESSION: Unchanged from initial note. Major neurocognitive disorder, probably vascular with delusion, depression; anxiety disorder, unspecified; psychotic disorder, unspecified. PLAN: Continue Zoloft 50 mg a day, Exelon patch 13.3 mg a day, Remeron 7.5 mg at bedtime, trazodone p.r.n., Zyprexa p.r.n., Namenda 5 mg b.i.d., Seroquel is 25 mg at bedtime and we will add 12.5 mg at 2:00 p.m. and 5:00 p.m. to help with his when he gets much more confused, delusional, restless. Review drug interactions, risk/benefit ratio favors no further change. ESTEFANIA HOLT MD DR: ANJALI/atty JOB#: [id number] / [id number]
--- NOTE | 2017-06-10 11:27 | PN ---
DATE: 06/07/2017 PSYCHIATRIC PROGRESS NOTE SUBJECTIVE: This late entry 06/07/2017 covers elements not covered in my initial note. I met with the patient evening of 06/07/2017. The patient remains confused, somewhat withdrawn, but otherwise appropriate on the unit, somewhat suspicious. REVIEW OF SYSTEMS: No CV, , pulmonary, eye, ENT system symptoms on review. Reliability poor. MENTAL STATUS EXAM: Oriented to himself and situation. Speech has some latency, coherent. Abstraction fair, computation impaired, language function intact. Mood and affect somewhat withdrawn. LABORATORY DATA: Reviewed. IMPRESSION: Unchanged from initial note. PLAN: Continue current psychotropics. Reviewed drug interactions, risk/benefit ratio favors no further change. In about 2 or 3 days, we will increase the Namenda, may need to increase Zoloft as well, we will maintain Seroquel at current dosage 12.5 mg b.i.d. and 25 mg at bedtime. Risk/benefit ratio favors no further change. MAN Alo HOLT MD DR: ANJALI/taty JOB#: [id number] / [id number]
--- NOTE | 2017-06-10 11:33 | PN ---
DATE: 06/08/2017 PSYCHIATRIC PROGRESS NOTE This note covers elements not covered in my initial note of 06/08/2017. The patient seen individually. He is quite agitated, delusional, yelling this morning. As I met with him, he talked at length about his sister suing him for 700,000 dollars of inheritance because she felt their father had preferred him as part of the inheritance, which he ____ has been somewhat sarcastic at times. Takes his medications after much coaxing. REVIEW OF SYSTEMS: No CV, , pulmonary, eye, ENT system symptoms on review. Reliability poor. MENTAL STATUS EXAM: Oriented to himself and situation. Speech is coherent, abstraction fair, computation impaired, language function intact. Attention span short. He is still somewhat psychotic. No suicidal or homicidal ideation. LABORATORY DATA: Reviewed. IMPRESSION: Unchanged from my initial note. PLAN: Continue current psychotropics. Reviewed drug interactions. Risk/benefit ratio favors no further change for now. ESTEFANIA HOLT MD DR: ANJALI/taty JOB#: [id number] / [id number]
[2017-06-10] MEDS: QUEtiapine 25 MG TABLET. PO SCH ×3 (14:30→19:17)
[2017-06-10 16:14] VITALS: BP 146/87
[2017-06-10] MEDS: MIRTAZAPINE 7.5 MG TABLET. PO SCH (19:17)
[2017-06-11 06:38] VITALS: BP 140/86
[2017-06-11 08:00] LABS: BASO # 0.1 x10^3/uL (0.0-0.2); BASO % 1 % (0-3); EOS # 0.3 x10^3/uL (0.0-0.7); EOS % 5 % (0-3); HEMATOCRIT 45.5 % (39.0-53.0); HEMOGLOBIN 15.6 g/dL (13.0-17.5); LYMPH # 0.9 x10^3/uL (1.0-4.8); LYMPH % 14 % (24-48); MEAN CORPUSCULAR HEMOGLOBIN 31 pg (25-35); MEAN CORPUSCULAR HGB CONC 34 g/dL (31-37); MEAN CORPUSCULAR VOLUME 91 fL (79-100); MONO # 0.6 x10^3/uL (0.0-1.1); MONO % 9 % (0-9); NEUT # 4.9 x10^3uL (1.8-7.7); NEUT % 71 % (31-73); PLATELET COUNT 219 x10^3/uL (140-400); RED CELL DISTRIBUTION WIDTH 13.8 % (11.5-14.5); WHITE BLOOD COUNT 6.8 x10^3/uL (4.0-11.0)
[2017-06-11 08:10] LABS: ALBUMIN 3.3 g/dL (3.4-5.0); ALBUMIN/GLOBULIN RATIO 0.9 (1.0-1.7); CALCIUM 8.8 mg/dL (8.5-10.1); CREATININE 1.1 mg/dL (0.7-1.3); GFR 64.2; POTASSIUM 4.2 mmol/L (3.5-5.1); TOTAL BILIRUBIN 0.4 mg/dL (0.2-1.0); TOTAL PROTEIN 6.8 g/dL (6.4-8.2)
[2017-06-11] MEDS: CALCIUM CARB/VIT D3 500/200 TABLET PO SCH ×2 (08:50→17:06)
--- NOTE | 2017-06-11 10:19 | PN ---
DATE: 06/10/2017 SUBJECTIVE: The patient was seen today, met with the staff, chart reviewed, and covering for Dr. Alonzo. Staff reports multiple falls prior to coming here. Currently on wheelchair, increased confusion, significant memory problems. The patient states that he was admitted to the hospital in [place] for 3 when he had this stroke. OBSERVATION: Temperature 98.3, blood pressure 163/85, pulse 92, respiration 18, O2 sat 96%. The patient slept about 8 hours last night. MEDICATIONS: Reviewed. Currently on trazodone 50 mg at bedtime p.r.n., Seroquel 25 mg b.i.d. and 25 mg at night, Namenda 5 mg b.i.d., Exelon patch 13.3 mg daily, Zoloft 50 mg daily, olanzapine 2.5 mg q. 12 hours p.r.n., mirtazapine 7.5 mg at night. ASSESSMENT: Major neurocognitive disorder, most likely vascular and also rule out Lewy body disease with depression and behavioral disturbances. PLAN: To continue with the treatment. DES CALI MD DR: VALENTINO/taty JOB#: [id number] / [id number]
[2017-06-11] MEDS: SERTRALINE 50 MG TABLET. PO SCH (10:44)
[2017-06-11] MEDS: MEMANTINE 5 MG TABLET. PO SCH ×2 (10:44→19:57)
[2017-06-11] MEDS: RIVASTIGMINE 13.3MG PATCH. TD SCH (10:45)
[2017-06-11] MEDS: QUEtiapine 25 MG TABLET. PO SCH ×3 (14:06→19:57)
[2017-06-11 15:32] VITALS: BP 116/83
[2017-06-11 19:57] VITALS: BP 162/95
[2017-06-11] MEDS: MIRTAZAPINE 7.5 MG TABLET. PO SCH (19:57)
[2017-06-11] MEDS: traZODone 50 MG TABLET. PO PRN (20:00)
--- NOTE | 2017-06-12 01:33 | PN ---
DATE: 06/11/2017 SUBJECTIVE: The patient was seen today, met with the staff, chart reviewed. The patient continues to have increased confusion, cognitive deficits, history of falls, currently on wheelchair. OBJECTIVE: VITAL SIGNS: Blood pressure 140/86, pulse 90, respirations 20, O2 sat 97%. GENERAL: Slept about 9 hours last night. His appetite is fair. The patient is not having any side effects from the medications. The patient denies of any other physical complaints except he is a fall risk. MEDICATIONS: The patient's current medications include trazodone 50 mg p.r.n., Seroquel 25 mg b.i.d. and 25 mg at night, Namenda 5 mg b.i.d., Exelon patch 13.3 mg daily, Zoloft 50 mg daily, olanzapine 2.5 mg every 12 hours p.r.n. and mirtazapine 7.5 mg at night. ASSESSMENT: Major neurocognitive disorder, most likely vascular and Lewy body disease with depression and behavioral disturbances. PLAN: Continue with the treatment. DES CALI MD DR: VALENTINO/taty JOB#: [id number] / [id number]
[2017-06-12 06:07] VITALS: BP 127/89
[2017-06-12] MEDS: CALCIUM CARB/VIT D3 500/200 TABLET PO SCH ×2 (10:09→16:54)
[2017-06-12] MEDS: MEMANTINE 5 MG TABLET. PO SCH ×2 (10:09→19:07)
[2017-06-12] MEDS: RIVASTIGMINE 13.3MG PATCH. TD SCH (10:10)
[2017-06-12 16:16] VITALS: BP 138/87
[2017-06-12] MEDS: traZODone 50 MG TABLET. PO PRN (19:06)
[2017-06-12] MEDS: QUEtiapine 25 MG TABLET. PO SCH (19:07)
[2017-06-12] MEDS: MIRTAZAPINE 15 MG TABLET PO SCH (19:31)
[2017-06-12] MEDS: DIVALPROEX 125 MG CAP.SPRINK PO SCH (19:32)
--- NOTE | 2017-06-13 04:49 | PN ---
DATE: 06/12/2017 SUBJECTIVE: The patient was seen today, met with the staff, chart reviewed. The patient's behavior remains the same, continues to be agitated, still delusional, paranoid, also is a fall risk. The patient apparently is not making much progress so far. OBSERVATION: VITAL SIGNS: Temperature 97.4, blood pressure 127/89, pulse 95, respirations 16, O2 sat 96%. Slept about 7 hours last night. CURRENT MEDICATIONS: The patient's current medications include trazodone 50 mg at night p.r.n., Seroquel 25 mg b.i.d. and 25 mg at night, Namenda 5 mg, Exelon patch 13.3 mg daily, Zoloft 50 mg daily, olanzapine 7.5 mg at night. The patient is not showing any side effects from medications. ASSESSMENT: Major neurocognitive disorder, most likely vascular and Lewy body disease with depression and behavioral disturbances. PLAN: To continue with the treatment and made some changes with these medications, Remeron to be increased to 15 mg at night and patient to start on Depakote 125 mg in the morning and 250 mg at night. Apparently, the patient has not had any visitors from home. Apparently, the family is not contacting him and also is not allowed to make any phone calls to the family and patient was getting paranoid over this. DES CALI MD DR: VALENTINO/taty JOB#: [id number] / [id number]
[2017-06-13 05:59] VITALS: BP 153/86
[2017-06-13] MEDS: MEMANTINE 5 MG TABLET. PO SCH ×2 (08:03→19:25)
[2017-06-13] MEDS: RIVASTIGMINE 13.3MG PATCH. TD SCH (08:03)
[2017-06-13] MEDS: CALCIUM CARB/VIT D3 500/200 TABLET PO SCH ×3 (08:03→17:29)
[2017-06-13] MEDS: SERTRALINE 50 MG TABLET. PO SCH (08:03)
[2017-06-13] MEDS: DIVALPROEX 125 MG CAP.SPRINK PO SCH ×2 (08:04→19:26)
[2017-06-13 15:35] VITALS: BP 157/98
[2017-06-13] MEDS: QUEtiapine 25 MG TABLET. PO SCH (19:25)
[2017-06-13] MEDS: MIRTAZAPINE 15 MG TABLET PO SCH (19:25)
[2017-06-13] MEDS: traZODone 50 MG TABLET. PO PRN (22:48)
[2017-06-14 05:44] VITALS: BP 141/76
[2017-06-14 07:33] VITALS: BP 133/82
[2017-06-14] MEDS: CALCIUM CARB/VIT D3 500/200 TABLET PO SCH ×2 (08:05→17:00)
[2017-06-14] MEDS: RIVASTIGMINE 13.3MG PATCH. TD SCH (08:05)
[2017-06-14] MEDS: SERTRALINE 50 MG TABLET. PO SCH (08:06)
[2017-06-14] MEDS: MEMANTINE 5 MG TABLET. PO SCH ×2 (08:06→19:39)
[2017-06-14] MEDS: DIVALPROEX 125 MG CAP.SPRINK PO SCH ×2 (08:06→19:40)
[2017-06-14 16:37] VITALS: BP 111/68
[2017-06-14] MEDS: MIRTAZAPINE 15 MG TABLET PO SCH (19:40)
[2017-06-14] MEDS: QUEtiapine 25 MG TABLET. PO SCH (19:40)
[2017-06-15] MEDS: CALCIUM CARB/VIT D3 500/200 TABLET PO SCH ×2 (08:33→19:27)
[2017-06-15] MEDS: RIVASTIGMINE 13.3MG PATCH. TD SCH (08:34)
[2017-06-15] MEDS: DIVALPROEX 125 MG CAP.SPRINK PO SCH ×2 (08:34→19:25)
[2017-06-15] MEDS: MEMANTINE 5 MG TABLET. PO SCH ×2 (08:34→19:25)
[2017-06-15] MEDS: SERTRALINE 50 MG TABLET. PO SCH (08:34)
[2017-06-15 15:56] VITALS: BP 126/72
[2017-06-15] MEDS: MIRTAZAPINE 15 MG TABLET PO SCH (19:25)
[2017-06-15] MEDS: QUEtiapine 25 MG TABLET. PO SCH (19:25)
[2017-06-16] MEDS: SERTRALINE 50 MG TABLET. PO SCH (08:36)
[2017-06-16] MEDS: CALCIUM CARB/VIT D3 500/200 TABLET PO SCH ×2 (08:36→16:12)
[2017-06-16] MEDS: DIVALPROEX 125 MG CAP.SPRINK PO SCH ×2 (08:36→19:47)
[2017-06-16] MEDS: RIVASTIGMINE 13.3MG PATCH. TD SCH (08:36)
[2017-06-16] MEDS: MEMANTINE 5 MG TABLET. PO SCH ×2 (08:36→19:47)
[2017-06-16 13:39] LABS: BASO # 0.1 x10^3/uL (0.0-0.2); BASO % 1 % (0-3); EOS # 0.5 x10^3/uL (0.0-0.7); EOS % 7 % (0-3); HEMATOCRIT 47.5 % (39.0-53.0); HEMOGLOBIN 15.8 g/dL (13.0-17.5); LYMPH # 1.3 x10^3/uL (1.0-4.8); LYMPH % 17 % (24-48); MEAN CORPUSCULAR HEMOGLOBIN 31 pg (25-35); MEAN CORPUSCULAR HGB CONC 33 g/dL (31-37); MEAN CORPUSCULAR VOLUME 92 fL (79-100); MONO # 0.5 x10^3/uL (0.0-1.1); MONO % 7 % (0-9); NEUT # 5.2 x10^3uL (1.8-7.7); NEUT % 68 % (31-73); PLATELET COUNT 270 x10^3/uL (140-400); RED BLOOD COUNT 5.17 x10^6/uL (4.30-5.70); WHITE BLOOD COUNT 7.6 x10^3/uL (4.0-11.0)
[2017-06-16 13:44] LABS: BACTERIA,URINE 0 /HPF (0-FEW); BILIRUBIN,URINE NEG (NEG); CLARITY,URINE CLEAR; COLOR,URINE YELLOW; GLUCOSE,URINE NEG (NEG); NITRITE,URINE NEG (NEG); RBC,URINE OCC /HPF (0-2); SQUAMOUS EPITHELIAL CELL,UR OCC /LPF; UROBILINOGEN,URINE 0.2 mg/dL (0.2 mg/dL); WBC,URINE RARE /HPF (0-4)
[2017-06-16 14:01] LABS: ALBUMIN 3.5 g/dL (3.4-5.0); ALBUMIN/GLOBULIN RATIO 0.9 (1.0-1.7); ALK PHOS 99 U/L (46-116); ALT (SGPT) 25 U/L (16-63); ANION GAP 5 (6-14); AST (SGOT) 15 U/L (15-37); BLOOD UREA NITROGEN 20 mg/dL (8-26); BUN/CREATININE RATIO 17 (6-20); CARBON DIOXIDE 34 mmol/L (21-32); CHLORIDE 104 mmol/L (98-107); CREATININE 1.2 mg/dL (0.7-1.3); GFR 58.1; GLUCOSE 107 mg/dL (70-99); POTASSIUM 4.2 mmol/L (3.5-5.1); SODIUM 143 mmol/L (136-145); TOTAL BILIRUBIN 0.2 mg/dL (0.2-1.0); TOTAL PROTEIN 7.2 g/dL (6.4-8.2)
[2017-06-16 14:02] LABS: VAL ACID 35 mcg/mL (50-100)
[2017-06-16 16:50] VITALS: BP 139/85
[2017-06-16] MEDS: MIRTAZAPINE 15 MG TABLET PO SCH (19:47)
[2017-06-16] MEDS: QUEtiapine 25 MG TABLET. PO SCH (19:47)
[2017-06-17] MEDS: RIVASTIGMINE 13.3MG PATCH. TD SCH (08:22)
[2017-06-17] MEDS: CALCIUM CARB/VIT D3 500/200 TABLET PO SCH ×2 (08:22→17:32)
[2017-06-17] MEDS: DIVALPROEX 125 MG CAP.SPRINK PO SCH ×2 (08:22→19:49)
[2017-06-17] MEDS: SERTRALINE 50 MG TABLET. PO SCH (08:22)
[2017-06-17] MEDS: MEMANTINE 5 MG TABLET. PO SCH ×2 (08:22→19:48)
--- NOTE | 2017-06-17 11:51 | PN ---
DATE: 06/13/2017 SUBJECTIVE: Discussed with the staff as part of the treatment plan and reviewed the patient's diagnosis, treatment, behaviors, discharge planning. The patient continues to be agitated and verbally abusive at times, ____. OBSERVATION: VITAL SIGNS: Temperature 97.8, blood pressure 153/86, pulse 94, respirations 20, O2 sat 96%. Slept about 9 hours last night. Appetite improved. No falls. MEDICATIONS: The patient's current medications include trazodone 50 mg at night p.r.n., Seroquel 25 mg b.i.d. and 25 mg at night, Namenda 5 mg daily, Exelon patch 13.3 mg daily, Zoloft 50 mg daily, and olanzapine 7.5 mg at night. The patient is not having any side effects from the medications. ASSESSMENT: Major neurocognitive disorder, most likely vascular and Lewy body disease with the depression and behavioral disturbances. PLAN: Continue with the treatment. The patient's Remeron was increased to 50 mg at night and the patient is also on Depakote 125 mg in the morning and 250 at night. Continue with the treatment. DES CALI MD DR: VALENTINO/taty JOB#: [id number] / [id number]
--- NOTE | 2017-06-17 12:36 | PN ---
DATE: 06/14/2017 SUBJECTIVE: The patient was seen today, met with the staff, chart reviewed. The patient continues to be agitated, at times loud, threatening. The patient apparently does not have much contact with his family. Every time when the family visits, the patient becomes very angry and also sometimes on the phone. OBSERVATION: VITAL SIGNS: Stable. Appetite fair, sleep improved. CURRENT MEDICATIONS: Include Depakote 125 mg daily and 250 at night, mirtazapine 15 mg at night, trazodone 50 mg p.r.n. at night for sleep, Seroquel 25 mg at night, Namenda 5 mg b.i.d., Exelon patch 1 daily, Zoloft 50 mg at night. The patient is not having any side effects from the medications. ASSESSMENT: Major neurocognitive disorder, most likely vascular and Lewy Body disease with the depression and behavioral disturbances. PLAN: Continue with the treatment. DES CALI MD DR: VALENTINO/taty JOB#: [id number] / [id number]
--- NOTE | 2017-06-17 12:40 | PN ---
DATE: 06/15/2017 SUBJECTIVE: The patient was seen today, met with the staff, chart reviewed. The patient's behavior remains the same, unsteady gait, fall risk ____ himself. The patient has been aggressive towards the family, increased confusion, also has some hand tremors. The patient is also incontinent, very strong smell of urine. OBSERVATION: VITAL SIGNS: The patient refused vital signs. GENERAL: Slept about 7-1/2 hours last night. CURRENT MEDICATIONS: The patient's current medications include Depakote 125 mg daily and 250 at night, mirtazapine 15 mg at night, trazodone 50 mg at night p.r.n., Seroquel 25 mg at night, Namenda 5 mg b.i.d., Exelon patch 13.3 mg daily, Zoloft 50 mg daily. ASSESSMENT: Major neurocognitive disorder, most likely vascular and Lewy body disease with depression and behavioral disturbances. PLAN: To continue with the treatment and also check Urine for analysis and culture to rule out any UTI. DES CALI MD DR: VALENTINO/taty JOB#: [id number] / [id number]
--- NOTE | 2017-06-17 12:43 | PN ---
DATE: 06/16/2017 SUBJECTIVE: The patient was seen today, met with the staff, and chart reviewed. The staff reports some improvement in his behavior. He was more alert, able to hold a rational conversation. The patient mostly has been agitated, delusional and paranoid and also unsteady gait. OBSERVATION: VITAL SIGNS: The patient refused. Slept about 7 hours last night. CURRENT MEDICATIONS: Include Depakote 125 mg daily, and 250 at night, mirtazapine 15 mg at night, trazodone 50 mg at night p.r.n., Seroquel 25 mg at night, Namenda 5 mg b.i.d. Exelon patch 13.3 mg daily, Zoloft 50 mg daily. The patient is not having any side effects to the medications. ASSESSMENT: Major neurocognitive disorder, most likely vascular and Lewy body disease with depression and behavioral disturbances. PLAN: To continue with the treatment. DES CALI MD DR: VALENTINO/taty JOB#: [id number] / [id number]
[2017-06-17 16:06] VITALS: BP 126/70
[2017-06-17] MEDS: MIRTAZAPINE 15 MG TABLET PO SCH (19:48)
[2017-06-17] MEDS: QUEtiapine 25 MG TABLET. PO SCH (19:48)
[2017-06-17] MEDS: traZODone 50 MG TABLET. PO PRN (19:49)
--- NOTE | 2017-06-17 20:47 | PDOC ---
Exam Toni Demential Exam: Toni Note: Please also refer to the separate dictated note~for this date of service dictated separately.~Patient seen individually. Discussed the patient with Nursing staff reviewed the chart.~Reviewed interim history and current functioning. Reviewed vital signs,~Labs/ Radiology~and current medications noted below. Continue current treatment with the changes noted in the dictated addendum note Assessment: Vital Signs: Vital Signs Date Time Temp Pulse Resp B/P (MAP) Pulse Ox O2 Delivery O2 Flow Rate FiO2 06/17/17 16:06 97.8 92 16 126/70 (88) 96 06/15/17 15:56 Room Air I&O Intake and Output 06/18/17 07:00 Intake Total 1440 ml Balance 1440 ml Intake Oral 1440 ml Current Medications: Meds: Current Medications Acetaminophen (Tylenol) 650 mg PRN Q6HRS PRN PO PAIN / TEMP Last administered on 06/17/17 19:48; Start 06/04/17 at 18:00 Multi-Ingredient Ointment (Analgesic [place]) 1 janell PRN QID PRN TP MUSCLE PAIN; Start 06/04/17 at 18:00 Al Hydroxide/Mg Hydroxide (Mylanta Plus Xs) 15 ml PRN AFTMEALHC PRN PO DYSPEPSIA; Start 06/04/17 at 18:00 Magnesium Hydroxide (Milk Of Magnesia) 2,400 mg PRN QHS PRN PO CONSTIPATION; Start 06/04/17 at 18:00 Mirtazapine (Remeron) 7.5 mg QHS PO Last administered on 06/11/17 19:57; Start 06/04/17 at 21:00; Stop 06/12/17 at 14:48; Status DC Sertraline HCl (Zoloft) 50 mg DAILY PO Last administered on 06/17/17 08:22; Start 06/05/17 at 09:00 Trazodone HCl (Desyrel) 50 mg PRN QHS PRN PO insomnia Last administered on 19:12; Start 06/05/17 at 00:00; Stop 06/07/17 at 14:43; Status DC Olanzapine (ZyPREXA ZYDIS) 2.5 mg PRN Q2HR PRN PO agitation, psychosis Last administered on 06/15/17 20:38; Start 06/05/17 at 00:00 Rivastigmine (Exelon 13.3mg) 1 patch DAILY TD Last administered on 06/17/17 08:22; Start 06/05/17 at 09:00 Memantine (Namenda) 5 mg BID PO Last administered on 06/17/17 19:48; Start 06/05/17 at 21:00 Quetiapine Fumarate (SEROquel) 25 mg QHS PO Last administered on 06/17/17 19: 48; Start 06/05/17 at 21:00 Quetiapine Fumarate (SEROquel) 12.5 mg BID@1400,1700 PO Last administered on 17:05; Start 06/06/17 at 14:00; Stop 06/12/17 at 14:48; Status DC Calcium/Vitamin D (Oscal D 500mg/ 200uts) 1 tab BIDWMEALS PO Last administered on 06/17/17 17:32; Start 06/06/17 at 17:00 Trazodone HCl (Desyrel) 50 mg PRN QHS PRN PO INSOMNIA Last administered on 19:49; Start 06/07/17 at 14:45 Hydroxyzine HCl (Atarax) 25 mg PRN Q6HRS PRN PO ANXIETY / AGITATION; Start at 15:00 Mirtazapine (Remeron) 15 mg QHS PO Last administered on 06/17/17 19:48; Start 06/12/17 at 21:00 Divalproex Sodium (Depakote [place]) 125 mg DAILY PO Last administered on 08:22; Start 06/13/17 at 09:00; Stop 06/17/17 at 19:05; Status DC Divalproex Sodium (Depakote Sprinkles) 250 mg QHS PO Last administered on 06/17 19:49; Start 06/12/17 at 21:00 Divalproex Sodium (Depakote Sprinkles) 250 mg BID@0900,1400 PO ; Start at 09:00 Quetiapine Fumarate (SEROquel) 25 mg BID@1400,1700 PO ; Start 06/18/17 at 14:00 Active Scripts Active Reported Zoloft (Sertraline Hcl) 25 Mg Tablet 25 Mg PO DAILY PRN Zoloft (Sertraline Hcl) 25 Mg Tablet 25 Mg PO DAILY EXELON 13.3mg/24hr (Rivastigmine) 1 Each Patch.td24 1 Patch TD DAILY Diagnosis: Problems: (1) Anxiety disorder (2) Dementia in Alzheimer's disease with delusions (3) Dementia in Alzheimer's disease with depression (4) Dementia, vascular, with delusions (5) Dementia, vascular, with depression (6) Impulse control disorder ESTEFANIA HOLT MD Jun 17, 2017 20:47
[2017-06-18 05:55] VITALS: BP 167/95
[2017-06-18] MEDS: RIVASTIGMINE 13.3MG PATCH. TD SCH (07:58)
[2017-06-18] MEDS: CALCIUM CARB/VIT D3 500/200 TABLET PO SCH ×2 (07:58→17:23)
[2017-06-18] MEDS: MEMANTINE 5 MG TABLET. PO SCH ×2 (07:58→20:06)
[2017-06-18] MEDS: SERTRALINE 50 MG TABLET. PO SCH (07:58)
[2017-06-18] MEDS: DIVALPROEX 125 MG CAP.SPRINK PO SCH ×3 (08:21→20:07)
[2017-06-18] MEDS: QUEtiapine 25 MG TABLET. PO SCH ×3 (12:49→20:07)
[2017-06-18 16:16] VITALS: BP 146/82
[2017-06-18] MEDS: MIRTAZAPINE 15 MG TABLET PO SCH (20:09)
--- NOTE | 2017-06-18 22:12 | PDOC ---
Exam Toni Demential Exam: Toni Note: Please also refer to the separate dictated note~for this date of service dictated separately.~Patient seen individually. Discussed the patient with Nursing staff reviewed the chart.~Reviewed interim history and current functioning. Reviewed vital signs,~Labs/ Radiology~and current medications noted below. Continue current treatment with the changes noted in the dictated addendum note Assessment: Vital Signs: Vital Signs Date Time Temp Pulse Resp B/P (MAP) Pulse Ox O2 Delivery O2 Flow Rate FiO2 06/18/17 16:16 97.8 86 20 146/82 (103) 97 06/15/17 15:56 Room Air I&O Intake and Output 06/19/17 07:00 Intake Total 540 ml Balance 540 ml Intake Oral 540 ml Current Medications: Meds: Current Medications Acetaminophen (Tylenol) 650 mg PRN Q6HRS PRN PO PAIN / TEMP Last administered on 06/17/17 19:48; Start 06/04/17 at 18:00 Multi-Ingredient Ointment (Analgesic [place]) 1 janell PRN QID PRN TP MUSCLE PAIN; Start 06/04/17 at 18:00 Al Hydroxide/Mg Hydroxide (Mylanta Plus Xs) 15 ml PRN AFTMEALHC PRN PO DYSPEPSIA; Start 06/04/17 at 18:00 Magnesium Hydroxide (Milk Of Magnesia) 2,400 mg PRN QHS PRN PO CONSTIPATION; Start 06/04/17 at 18:00 Mirtazapine (Remeron) 7.5 mg QHS PO Last administered on 06/11/17 19:57; Start 06/04/17 at 21:00; Stop 06/12/17 at 14:48; Status DC Sertraline HCl (Zoloft) 50 mg DAILY PO Last administered on 06/18/17 07:58; Start 06/05/17 at 09:00 Trazodone HCl (Desyrel) 50 mg PRN QHS PRN PO insomnia Last administered on 19:12; Start 06/05/17 at 00:00; Stop 06/07/17 at 14:43; Status DC Olanzapine (ZyPREXA ZYDIS) 2.5 mg PRN Q2HR PRN PO agitation, psychosis Last administered on 06/15/17 20:38; Start 06/05/17 at 00:00 Rivastigmine (Exelon 13.3mg) 1 patch DAILY TD Last administered on 06/18/17 07:58; Start 06/05/17 at 09:00 Memantine (Namenda) 5 mg BID PO Last administered on 06/18/17 20:06; Start 06/05/17 at 21:00 Quetiapine Fumarate (SEROquel) 25 mg QHS PO Last administered on 06/18/17 20: 07; Start 06/05/17 at 21:00 Quetiapine Fumarate (SEROquel) 12.5 mg BID@1400,1700 PO Last administered on 17:05; Start 06/06/17 at 14:00; Stop 06/12/17 at 14:48; Status DC Calcium/Vitamin D (Oscal D 500mg/ 200uts) 1 tab BIDWMEALS PO Last administered on 06/18/17 17:23; Start 06/06/17 at 17:00 Trazodone HCl (Desyrel) 50 mg PRN QHS PRN PO INSOMNIA Last administered on 19:49; Start 06/07/17 at 14:45 Hydroxyzine HCl (Atarax) 25 mg PRN Q6HRS PRN PO ANXIETY / AGITATION; Start at 15:00 Mirtazapine (Remeron) 15 mg QHS PO Last administered on 06/18/17 20:09; Start 06/12/17 at 21:00 Divalproex Sodium (Depakote Sprinkles) 125 mg DAILY PO Last administered on 08:22; Start 06/13/17 at 09:00; Stop 06/17/17 at 19:05; Status DC Divalproex Sodium (Depakote Sprinkles) 250 mg QHS PO Last administered on 06/18 20:07; Start 06/12/17 at 21:00 Divalproex Sodium (Depakote Sprinkles) 250 mg BID@0900,1400 PO Last administered on 06/18/17 12:49; Start 06/18/17 at 09:00 Quetiapine Fumarate (SEROquel) 25 mg BID@1400,1700 PO Last administered on 10/ 31/17at 17:23; Start 06/18/17 at 14:00 Active Scripts Active Reported Zoloft (Sertraline Hcl) 25 Mg Tablet 25 Mg PO DAILY PRN Zoloft (Sertraline Hcl) 25 Mg Tablet 25 Mg PO DAILY EXELON 13.3mg/24hr (Rivastigmine) 1 Each Patch.td24 1 Patch TD DAILY Diagnosis: Problems: (1) Anxiety disorder (2) Dementia in Alzheimer's disease with delusions (3) Dementia in Alzheimer's disease with depression (4) Dementia, vascular, with delusions (5) Dementia, vascular, with depression (6) Impulse control disorder ESTEFANIA HOLT MD Jun 18, 2017 22:12
[2017-06-19 06:01] VITALS: BP 125/84
[2017-06-19] MEDS: DIVALPROEX 125 MG CAP.SPRINK PO SCH ×3 (08:14→19:31)
[2017-06-19] MEDS: SERTRALINE 50 MG TABLET. PO SCH (08:15)
[2017-06-19] MEDS: MEMANTINE 5 MG TABLET. PO SCH ×2 (08:15→19:31)
[2017-06-19] MEDS: RIVASTIGMINE 13.3MG PATCH. TD SCH (08:15)
[2017-06-19] MEDS: CALCIUM CARB/VIT D3 500/200 TABLET PO SCH ×2 (08:15→17:35)
--- NOTE | 2017-06-19 10:47 | PN ---
DATE: 06/17/2017 PSYCHIATRIC PROGRESS NOTE This is a late entry for 06/17/2017, covers the elements not covered in my initial note of 06/17/2017. SUBJECTIVE: I met with the patient several times the evening of 06/17/2017. Per nursing report, the patient remains confused. Appetite is fair. Social service staff indicate family is looking at placement options. He is intermittently agitated, delusional, at times thinks this is his house ____. He had a shower after being resistive for 5 days and let the staff change him. REVIEW OF SYSTEMS: No CV, , pulmonary, eye, ENT system symptoms on review. Reliability poor. Ambulation impaired, in wheelchair. MENTAL STATUS EXAM: Oriented to himself. Insight, judgment, recent and remote memory, attention, concentration, fund of knowledge poor, consistent with his diagnosis mentioned in my initial note. PLAN: Increase Seroquel from 12.5 mg b.i.d. to 25 mg b.i.d., maintain 25 mg at bedtime. May continue rest of the psychotropics. Reviewed drug interactions, risk/benefit ratio favors no further change. MAN Alo HOLT MD DR: ANJALI/taty JOB#: [id number] / [id number]
[2017-06-19] MEDS: QUEtiapine 25 MG TABLET. PO SCH ×3 (14:05→19:31)
[2017-06-19 16:37] VITALS: BP 145/88
[2017-06-19] MEDS: MIRTAZAPINE 15 MG TABLET PO SCH (19:31)
--- NOTE | 2017-06-19 20:56 | PDOC ---
Exam Toni Demential Exam: Toni Note: Please also refer to the separate dictated note~for this date of service dictated separately.~Patient seen individually. Discussed the patient with Nursing staff reviewed the chart.~Reviewed interim history and current functioning. Reviewed vital signs,~Labs/ Radiology~and current medications noted below. Continue current treatment with the changes noted in the dictated addendum note Assessment: Vital Signs: Vital Signs Date Time Temp Pulse Resp B/P (MAP) Pulse Ox O2 Delivery O2 Flow Rate FiO2 06/19/17 16:37 98.2 101 20 145/88 (107) 96 Room Air I&O Intake and Output 06/20/17 07:00 Intake Total 840 ml Balance 840 ml Intake Oral 840 ml Current Medications: Meds: Current Medications Acetaminophen (Tylenol) 650 mg PRN Q6HRS PRN PO PAIN / TEMP Last administered on 06/17/17 19:48; Start 06/04/17 at 18:00 Multi-Ingredient Ointment (Analgesic [place]) 1 janell PRN QID PRN TP MUSCLE PAIN; Start 06/04/17 at 18:00 Al Hydroxide/Mg Hydroxide (Mylanta Plus Xs) 15 ml PRN AFTMEALHC PRN PO DYSPEPSIA; Start 06/04/17 at 18:00 Magnesium Hydroxide (Milk Of Magnesia) 2,400 mg PRN QHS PRN PO CONSTIPATION; Start 06/04/17 at 18:00 Mirtazapine (Remeron) 7.5 mg QHS PO Last administered on 06/11/17 19:57; Start 06/04/17 at 21:00; Stop 06/12/17 at 14:48; Status DC Sertraline HCl (Zoloft) 50 mg DAILY PO Last administered on 06/19/17 08:15; Start 06/05/17 at 09:00 Trazodone HCl (Desyrel) 50 mg PRN QHS PRN PO insomnia Last administered on 19:12; Start 06/05/17 at 00:00; Stop 06/07/17 at 14:43; Status DC Olanzapine (ZyPREXA ZYDIS) 2.5 mg PRN Q2HR PRN PO agitation, psychosis Last administered on 06/15/17 20:38; Start 06/05/17 at 00:00 Rivastigmine (Exelon 13.3mg) 1 patch DAILY TD Last administered on 06/19/17 08 :15; Start 06/05/17 at 09:00 Memantine (Namenda) 5 mg BID PO Last administered on 06/19/17 19:31; Start at 21:00 Quetiapine Fumarate (SEROquel) 25 mg QHS PO Last administered on 06/19/17 19: 31; Start 06/05/17 at 21:00 Quetiapine Fumarate (SEROquel) 12.5 mg BID@1400,1700 PO Last administered on 17:05; Start 06/06/17 at 14:00; Stop 06/12/17 at 14:48; Status DC Calcium/Vitamin D (Oscal D 500mg/ 200uts) 1 tab BIDWMEALS PO Last administered on 06/19/17 17:35; Start 06/06/17 at 17:00 Trazodone HCl (Desyrel) 50 mg PRN QHS PRN PO INSOMNIA Last administered on 19:49; Start 06/07/17 at 14:45 Hydroxyzine HCl (Atarax) 25 mg PRN Q6HRS PRN PO ANXIETY / AGITATION; Start at 15:00 Mirtazapine (Remeron) 15 mg QHS PO Last administered on 06/19/17 19:31; Start 06/12/17 at 21:00 Divalproex Sodium (Depakote Sprinkles) 125 mg DAILY PO Last administered on 08:22; Start 06/13/17 at 09:00; Stop 06/17/17 at 19:05; Status DC Divalproex Sodium (Depakote Sprinkles) 250 mg QHS PO Last administered on 19:31; Start 06/12/17 at 21:00 Divalproex Sodium (Depakote Sprinkles) 250 mg BID@0900,1400 PO Last administered on 06/19/17 14:05; Start 06/18/17 at 09:00 Quetiapine Fumarate (SEROquel) 25 mg BID@1400,1700 PO Last administered on 06/19 17:35; Start 06/18/17 at 14:00 Active Scripts Active Reported Zoloft (Sertraline Hcl) 25 Mg Tablet 25 Mg PO DAILY PRN Zoloft (Sertraline Hcl) 25 Mg Tablet 25 Mg PO DAILY EXELON 13.3mg/24hr (Rivastigmine) 1 Each Patch.td24 1 Patch TD DAILY Diagnosis: Problems: (1) Anxiety disorder (2) Dementia in Alzheimer's disease with delusions (3) Dementia in Alzheimer's disease with depression (4) Dementia, vascular, with delusions (5) Dementia, vascular, with depression (6) Impulse control disorder ESTEFANIA HOLT MD Jun 19, 2017 20:56
[2017-06-20 06:21] VITALS: BP 152/92
[2017-06-20 08:07] LABS: BASO # 0.1 x10^3/uL (0.0-0.2); BASO % 1 % (0-3); EOS # 0.6 x10^3/uL (0.0-0.7); EOS % 8 % (0-3); HEMATOCRIT 44.3 % (39.0-53.0); LYMPH # 1.4 x10^3/uL (1.0-4.8); LYMPH % 20 % (24-48); MEAN CORPUSCULAR HEMOGLOBIN 31 pg (25-35); MEAN CORPUSCULAR HGB CONC 34 g/dL (31-37); MEAN CORPUSCULAR VOLUME 91 fL (79-100); MONO # 0.6 x10^3/uL (0.0-1.1); MONO % 9 % (0-9); NEUT # 4.4 x10^3uL (1.8-7.7); NEUT % 63 % (31-73); PLATELET COUNT 234 x10^3/uL (140-400); RED BLOOD COUNT 4.86 x10^6/uL (4.30-5.70); RED CELL DISTRIBUTION WIDTH 13.9 % (11.5-14.5)
[2017-06-20 08:15] LABS: ALBUMIN/GLOBULIN RATIO 0.9 (1.0-1.7); ALK PHOS 68 U/L (46-116); ALT (SGPT) 25 U/L (16-63); ANION GAP 5 (6-14); AST (SGOT) 16 U/L (15-37); BLOOD UREA NITROGEN 22 mg/dL (8-26); BUN/CREATININE RATIO 20 (6-20); CALCIUM 8.7 mg/dL (8.5-10.1); CARBON DIOXIDE 31 mmol/L (21-32); CHLORIDE 105 mmol/L (98-107); CREATININE 1.1 mg/dL (0.7-1.3); GFR 64.2; GLUCOSE 88 mg/dL (70-99); POTASSIUM 3.8 mmol/L (3.5-5.1); SODIUM 141 mmol/L (136-145); TOTAL BILIRUBIN 0.3 mg/dL (0.2-1.0); TOTAL PROTEIN 6.2 g/dL (6.4-8.2)
[2017-06-20 08:24] LABS: VAL ACID 58 mcg/mL (50-100)
[2017-06-20] MEDS: DIVALPROEX 125 MG CAP.SPRINK PO SCH ×3 (08:45→19:19)
[2017-06-20] MEDS: CALCIUM CARB/VIT D3 500/200 TABLET PO SCH ×3 (08:45→17:24)
[2017-06-20] MEDS: RIVASTIGMINE 13.3MG PATCH. TD SCH (08:46)
[2017-06-20] MEDS: SERTRALINE 50 MG TABLET. PO SCH (08:46)
[2017-06-20] MEDS: MEMANTINE 5 MG TABLET. PO SCH ×2 (08:46→19:19)
--- NOTE | 2017-06-20 09:26 | PN ---
DATE: 06/18/2017 This is late entry, date of service 06/18/2017 of covers elements not covered in my initial note of 06/18/2017. SUBJECTIVE: The patient was seen individually evening of 06/18/2017. The patient was fairly calm the previous evening, takes his medications whole, more cooperative, still somewhat obsessive, anxious, a little paranoid especially when I discussed discharge plans with him evening of 06/18/2017. REVIEW OF SYSTEMS: Ambulation impaired, in a wheelchair. No CV, , pulmonary, eye, ENT system symptoms on review. Reliability poor. MENTAL STATUS EXAMINATION: Oriented to himself. Insight, judgment, recent and remote memory, attention, concentration, fund of knowledge poor, consistent with his diagnosis mentioned in my initial note. PLAN: Continue current psychotropics, reviewed drug interactions. Risk/benefit ratio favors no further. MAN Alo HOLT MD DR: ANJALI/taty JOB#: [id number] / [id number]
[2017-06-20] MEDS: QUEtiapine 25 MG TABLET. PO SCH ×3 (14:20→19:19)
[2017-06-20 16:27] VITALS: BP 113/70
[2017-06-20] MEDS: MIRTAZAPINE 15 MG TABLET PO SCH (19:19)
--- NOTE | 2017-06-20 20:53 | PDOC ---
Exam Toni Demential Exam: Toni Note: Please also refer to the separate dictated note~for this date of service dictated separately.~Patient seen individually. Discussed the patient with Nursing staff reviewed the chart.~Reviewed interim history and current functioning. Reviewed vital signs,~Labs/ Radiology~and current medications noted below. Continue current treatment with the changes noted in the dictated addendum note Assessment: Vital Signs: Vital Signs Date Time Temp Pulse Resp B/P (MAP) Pulse Ox O2 Delivery O2 Flow Rate FiO2 06/20/17 16:27 98.7 95 22 113/70 (84) 96 Room Air I&O Intake and Output 06/21/17 07:00 Intake Total 900 ml Balance 900 ml Intake Oral 900 ml # Bowel Movements 2 Labs: Laboratory Tests Test 06/20/17 07:39 White Blood Count 7.0 x10^3/uL (4.0-11.0) Red Blood Count 4.86 x10^6/uL (4.30-5.70) Hemoglobin 15.0 g/dL (13.0-17.5) Hematocrit 44.3 % (39.0-53.0) Mean Corpuscular Volume 91 fL (79-100) Mean Corpuscular Hemoglobin 31 pg (25-35) Mean Corpuscular Hemoglobin Concent 34 g/dL (31-37) Red Cell Distribution Width 13.9 % (11.5-14.5) Platelet Count 234 x10^3/uL (140-400) Neutrophils (%) (Auto) 63 % (31-73) Lymphocytes (%) (Auto) 20 % (24-48) L Monocytes (%) (Auto) 9 % (0-9) Eosinophils (%) (Auto) 8 % (0-3) H Basophils (%) (Auto) 1 % (0-3) Neutrophils # (Auto) 4.4 x10^3uL (1.8-7.7) Lymphocytes # (Auto) 1.4 x10^3/uL (1.0-4.8) Monocytes # (Auto) 0.6 x10^3/uL (0.0-1.1) Eosinophils # (Auto) 0.6 x10^3/uL (0.0-0.7) Basophils # (Auto) 0.1 x10^3/uL (0.0-0.2) Sodium Level 141 mmol/L (136-145) Potassium Level 3.8 mmol/L (3.5-5.1) Chloride Level 105 mmol/L (98-107) Carbon Dioxide Level 31 mmol/L (21-32) Anion Gap 5 (6-14) L Blood Urea Nitrogen 22 mg/dL (8-26) Creatinine 1.1 mg/dL (0.7-1.3) Estimated GFR (Cockcroft-Gault) 64.2 BUN/Creatinine Ratio 20 (6-20) Glucose Level 88 mg/dL (70-99) Calcium Level 8.7 mg/dL (8.5-10.1) Total Bilirubin 0.3 mg/dL (0.2-1.0) Aspartate Amino Transferase (AST) 16 U/L (15-37) Alanine Aminotransferase (ALT) 25 U/L (16-63) Alkaline Phosphatase 68 U/L (46-116) Total Protein 6.2 g/dL (6.4-8.2) L Albumin 3.0 g/dL (3.4-5.0) L Albumin/Globulin Ratio 0.9 (1.0-1.7) L Valproic Acid Level 58 mcg/mL (50-100) Valproic Acid Last Dose Date 06/19/2017 Valproic Acid Last Dose Time 2100 Current Medications: Meds: Current Medications Acetaminophen (Tylenol) 650 mg PRN Q6HRS PRN PO PAIN / TEMP Last administered on 06/17/17 19:48; Start 06/04/17 at 18:00 Multi-Ingredient Ointment (Analgesic [place]) 1 janell PRN QID PRN TP MUSCLE PAIN; Start 06/04/17 at 18:00 Al Hydroxide/Mg Hydroxide (Mylanta Plus Xs) 15 ml PRN AFTMEALHC PRN PO DYSPEPSIA; Start 06/04/17 at 18:00 Magnesium Hydroxide (Milk Of Magnesia) 2,400 mg PRN QHS PRN PO CONSTIPATION; Start 06/04/17 at 18:00 Mirtazapine (Remeron) 7.5 mg QHS PO Last administered on 06/11/17 19:57; Start 06/04/17 at 21:00; Stop 06/12/17 at 14:48; Status DC Sertraline HCl (Zoloft) 50 mg DAILY PO Last administered on 06/20/17 08:46; Start 06/05/17 at 09:00 Trazodone HCl (Desyrel) 50 mg PRN QHS PRN PO insomnia Last administered on 19:12; Start 06/05/17 at 00:00; Stop 06/07/17 at 14:43; Status DC Olanzapine (ZyPREXA ZYDIS) 2.5 mg PRN Q2HR PRN PO agitation, psychosis Last administered on 06/15/17 20:38; Start 06/05/17 at 00:00 Rivastigmine (Exelon 13.3mg) 1 patch DAILY TD Last administered on 06/20/17 08 :46; Start 06/05/17 at 09:00 Memantine (Namenda) 5 mg BID PO Last administered on 06/20/17 19:19; Start at 21:00 Quetiapine Fumarate (SEROquel) 25 mg QHS PO Last administered on 06/20/17 19: 19; Start 06/05/17 at 21:00 Quetiapine Fumarate (SEROquel) 12.5 mg BID@1400,1700 PO Last administered on 17:05; Start 06/06/17 at 14:00; Stop 06/12/17 at 14:48; Status DC Calcium/Vitamin D (Oscal D 500mg/ 200uts) 1 tab BIDWMEALS PO Last administered on 06/20/17 08:45; Start 06/06/17 at 17:00 Trazodone HCl (Desyrel) 50 mg PRN QHS PRN PO INSOMNIA Last administered on 19:49; Start 06/07/17 at 14:45 Hydroxyzine HCl (Atarax) 25 mg PRN Q6HRS PRN PO ANXIETY / AGITATION; Start at 15:00 Mirtazapine (Remeron) 15 mg QHS PO Last administered on 06/20/17 19:19; Start 06/12/17 at 21:00 Divalproex Sodium (Depakote Sprinkles) 125 mg DAILY PO Last administered on 08:22; Start 06/13/17 at 09:00; Stop 06/17/17 at 19:05; Status DC Divalproex Sodium (Depakote Sprinkles) 250 mg QHS PO Last administered on 19:19; Start 06/12/17 at 21:00 Divalproex Sodium (Depakote Sprinkles) 250 mg BID@0900,1400 PO Last administered on 06/20/17 14:20; Start 06/18/17 at 09:00 Quetiapine Fumarate (SEROquel) 25 mg BID@1400,1700 PO Last administered on 06/20 17:24; Start 06/18/17 at 14:00; Stop 06/20/17 at 18:54; Status DC Quetiapine Fumarate (SEROquel) 37.5 mg BID@1400,1700 PO ; Start 06/21/17 at 14: 00 Active Scripts Active Reported Zoloft (Sertraline Hcl) 25 Mg Tablet 25 Mg PO DAILY PRN Zoloft (Sertraline Hcl) 25 Mg Tablet 25 Mg PO DAILY EXELON 13.3mg/24hr (Rivastigmine) 1 Each Patch.td24 1 Patch TD DAILY Diagnosis: Problems: (1) Anxiety disorder (2) Dementia in Alzheimer's disease with delusions (3) Dementia in Alzheimer's disease with depression (4) Dementia, vascular, with delusions (5) Dementia, vascular, with depression (6) Impulse control disorder ESTEFANIA HOLT MD Jun 20, 2017 20:53
--- NOTE | 2017-06-20 23:22 | PN ---
DATE: 06/19/2017 This late entry for 06/19/2017 covers elements not covered in my initial note of 06/19/2017. SUBJECTIVE: The patient was seen individually in the evening of 06/19/2017. Discussed with nursing staff, reviewed the chart and the patient was staffed at a treatment team with the entire team in the morning of 06/19/2017. The patient remains confused. He is less agitated and less arguing. He is still somewhat delusional and withdrawn, does come out for meals. REVIEW OF SYSTEMS: No CV, , pulmonary, eye, ENT system symptoms on review. Gait unsteady. Reliability poor. MENTAL STATUS EXAM: Oriented to health situation. Insight, judgment, recent memory is impaired. Language function intact. Attention span short. Mood and affect, lability is improved, less delusional. LABORATORY DATA: Reviewed. IMPRESSION: Unchanged from initial note. PLAN: Continue current psychotropics. Reviewed drug interactions. Risk/benefit ratio favors no further change. ESTEFANIA HOLT MD DR: ANJALI/taty JOB#: [id number] / [id number]
[2017-06-21 06:17] VITALS: BP 144/93
[2017-06-21] MEDS: CALCIUM CARB/VIT D3 500/200 TABLET PO SCH ×2 (09:37→17:47)
[2017-06-21] MEDS: SERTRALINE 50 MG TABLET. PO SCH (09:37)
[2017-06-21] MEDS: DIVALPROEX 125 MG CAP.SPRINK PO SCH ×3 (09:37→19:33)
[2017-06-21] MEDS: RIVASTIGMINE 13.3MG PATCH. TD SCH (09:37)
[2017-06-21] MEDS: MEMANTINE 5 MG TABLET. PO SCH ×2 (09:37→19:32)
[2017-06-21 16:18] VITALS: BP 117/79
[2017-06-21] MEDS: QUEtiapine 25 MG TABLET. PO SCH ×3 (17:47→19:32)
[2017-06-21 18:42] VITALS: BP 145/99
[2017-06-21] MEDS: MIRTAZAPINE 15 MG TABLET PO SCH (19:32)
--- NOTE | 2017-06-21 21:02 | PDOC ---
Exam Toni Demential Exam: Toni Note: Please also refer to the separate dictated note~for this date of service dictated separately.~Patient seen individually. Discussed the patient with Nursing staff reviewed the chart.~Reviewed interim history and current functioning. Reviewed vital signs,~Labs/ Radiology~and current medications noted below. Continue current treatment with the changes noted in the dictated addendum note Assessment: Vital Signs: Vital Signs Date Time Temp Pulse Resp B/P (MAP) Pulse Ox O2 Delivery O2 Flow Rate FiO2 06/21/17 18:42 99 20 145/99 (114) 95 06/21/17 16:18 98.8 06/20/17 16:27 Room Air I&O Intake and Output 06/22/17 07:00 Intake Total 1080 ml Balance 1080 ml Intake Oral 1080 ml Current Medications: Meds: Current Medications Acetaminophen (Tylenol) 650 mg PRN Q6HRS PRN PO PAIN / TEMP Last administered on 06/17/17 19:48; Start 06/04/17 at 18:00 Multi-Ingredient Ointment (Analgesic [place]) 1 janell PRN QID PRN TP MUSCLE PAIN; Start 06/04/17 at 18:00 Al Hydroxide/Mg Hydroxide (Mylanta Plus Xs) 15 ml PRN AFTMEALHC PRN PO DYSPEPSIA; Start 06/04/17 at 18:00 Magnesium Hydroxide (Milk Of Magnesia) 2,400 mg PRN QHS PRN PO CONSTIPATION; Start 06/04/17 at 18:00 Mirtazapine (Remeron) 7.5 mg QHS PO Last administered on 06/11/17 19:57; Start 06/04/17 at 21:00; Stop 06/12/17 at 14:48; Status DC Sertraline HCl (Zoloft) 50 mg DAILY PO Last administered on 06/21/17 09:37; Start 06/05/17 at 09:00; Stop 06/21/17 at 18:33; Status DC Trazodone HCl (Desyrel) 50 mg PRN QHS PRN PO insomnia Last administered on 19:12; Start 06/05/17 at 00:00; Stop 06/07/17 at 14:43; Status DC Olanzapine (ZyPREXA ZYDIS) 2.5 mg PRN Q2HR PRN PO agitation, psychosis Last administered on 06/15/17 20:38; Start 06/05/17 at 00:00 Rivastigmine (Exelon 13.3mg) 1 patch DAILY TD Last administered on 06/21/17 09 :37; Start 06/05/17 at 09:00 Memantine (Namenda) 5 mg BID PO Last administered on 06/21/17 19:32; Start at 21:00 Quetiapine Fumarate (SEROquel) 25 mg QHS PO Last administered on 06/21/17 19: 32; Start 06/05/17 at 21:00 Quetiapine Fumarate (SEROquel) 12.5 mg BID@1400,1700 PO Last administered on 17:05; Start 06/06/17 at 14:00; Stop 06/12/17 at 14:48; Status DC Calcium/Vitamin D (Oscal D 500mg/ 200uts) 1 tab BIDWMEALS PO Last administered on 06/21/17 17:47; Start 06/06/17 at 17:00 Trazodone HCl (Desyrel) 50 mg PRN QHS PRN PO INSOMNIA Last administered on 19:49; Start 06/07/17 at 14:45 Hydroxyzine HCl (Atarax) 25 mg PRN Q6HRS PRN PO ANXIETY / AGITATION; Start at 15:00 Mirtazapine (Remeron) 15 mg QHS PO Last administered on 06/21/17 19:32; Start 06/12/17 at 21:00 Divalproex Sodium (Depakote Sprinkles) 125 mg DAILY PO Last administered on 08:22; Start 06/13/17 at 09:00; Stop 06/17/17 at 19:05; Status DC Divalproex Sodium (Depakote Sprinkles) 250 mg QHS PO Last administered on 19:33; Start 06/12/17 at 21:00 Divalproex Sodium (Depakote Sprinkles) 250 mg BID@0900,1400 PO Last administered on 06/21/17 17:47; Start 06/18/17 at 09:00 Quetiapine Fumarate (SEROquel) 25 mg BID@1400,1700 PO Last administered on 06/20 17:24; Start 06/18/17 at 14:00; Stop 06/20/17 at 18:54; Status DC Quetiapine Fumarate (SEROquel) 37.5 mg BID@1400,1700 PO Last administered on 17:48; Start 06/21/17 at 14:00 Sertraline HCl (Zoloft) 75 mg DAILY PO ; Start 06/22/17 at 09:00 Active Scripts Active Reported Zoloft (Sertraline Hcl) 25 Mg Tablet 25 Mg PO DAILY PRN Zoloft (Sertraline Hcl) 25 Mg Tablet 25 Mg PO DAILY EXELON 13.3mg/24hr (Rivastigmine) 1 Each Patch.td24 1 Patch TD DAILY Diagnosis: Problems: (1) Anxiety disorder (2) Dementia in Alzheimer's disease with delusions (3) Dementia in Alzheimer's disease with depression (4) Dementia, vascular, with delusions (5) Dementia, vascular, with depression (6) Impulse control disorder ESTEFANIA HOLT MD Jun 21, 2017 21:01
[2017-06-21] MEDS: traZODone 50 MG TABLET. PO PRN (21:14)
[2017-06-22 06:07] VITALS: BP 115/75
[2017-06-22] MEDS: CALCIUM CARB/VIT D3 500/200 TABLET PO SCH ×2 (06:46→17:00)
[2017-06-22] MEDS: DIVALPROEX 125 MG CAP.SPRINK PO SCH ×3 (06:46→20:10)
[2017-06-22] MEDS: RIVASTIGMINE 13.3MG PATCH. TD SCH (06:46)
[2017-06-22] MEDS: MEMANTINE 5 MG TABLET. PO SCH ×2 (06:46→20:10)
[2017-06-22] MEDS: SERTRALINE 50 MG TABLET. PO SCH (09:00)
[2017-06-22] MEDS: QUEtiapine 25 MG TABLET. PO SCH ×3 (12:58→20:13)
[2017-06-22 16:18] VITALS: BP 121/65
[2017-06-22] MEDS: MIRTAZAPINE 15 MG TABLET PO SCH (20:10)
--- NOTE | 2017-06-22 23:59 | PDOC ---
Exam Toni Demential Exam: Toni Note: Please also refer to the separate dictated note~for this date of service dictated separately.~Patient seen individually. Discussed the patient with Nursing staff reviewed the chart.~Reviewed interim history and current functioning. Reviewed vital signs,~Labs/ Radiology~and current medications noted below. Continue current treatment with the changes noted in the dictated addendum note Assessment: Vital Signs: Vital Signs Date Time Temp Pulse Resp B/P (MAP) Pulse Ox O2 Delivery O2 Flow Rate FiO2 06/22/17 16:18 98.4 95 16 121/65 (83) 96 06/20/17 16:27 Room Air I&O Intake and Output 06/23/17 07:00 Intake Total 300 ml Balance 300 ml Intake Oral 300 ml Current Medications: Meds: Current Medications Acetaminophen (Tylenol) 650 mg PRN Q6HRS PRN PO PAIN / TEMP Last administered on 06/17/17 19:48; Start 06/04/17 at 18:00 Multi-Ingredient Ointment (Analgesic [place]) 1 janell PRN QID PRN TP MUSCLE PAIN; Start 06/04/17 at 18:00 Al Hydroxide/Mg Hydroxide (Mylanta Plus Xs) 15 ml PRN AFTMEALHC PRN PO DYSPEPSIA; Start 06/04/17 at 18:00 Magnesium Hydroxide (Milk Of Magnesia) 2,400 mg PRN QHS PRN PO CONSTIPATION; Start 06/04/17 at 18:00 Mirtazapine (Remeron) 7.5 mg QHS PO Last administered on 06/11/17 19:57; Start 06/04/17 at 21:00; Stop 06/12/17 at 14:48; Status DC Sertraline HCl (Zoloft) 50 mg DAILY PO Last administered on 06/21/17 09:37; Start 06/05/17 at 09:00; Stop 06/21/17 at 18:33; Status DC Trazodone HCl (Desyrel) 50 mg PRN QHS PRN PO insomnia Last administered on 19:12; Start 06/05/17 at 00:00; Stop 06/07/17 at 14:43; Status DC Olanzapine (ZyPREXA ZYDIS) 2.5 mg PRN Q2HR PRN PO agitation, psychosis Last administered on 06/15/17 20:38; Start 06/05/17 at 00:00 Rivastigmine (Exelon 13.3mg) 1 patch DAILY TD Last administered on 06/22/17 06 :46; Start 06/05/17 at 09:00 Memantine (Namenda) 5 mg BID PO Last administered on 06/22/17 20:10; Start at 21:00 Quetiapine Fumarate (SEROquel) 25 mg QHS PO Last administered on 06/21/17 19: 32; Start 06/05/17 at 21:00 Quetiapine Fumarate (SEROquel) 12.5 mg BID@1400,1700 PO Last administered on 17:05; Start 06/06/17 at 14:00; Stop 06/12/17 at 14:48; Status DC Calcium/Vitamin D (Oscal D 500mg/ 200uts) 1 tab BIDWMEALS PO Last administered on 06/22/17 06:46; Start 06/06/17 at 17:00 Trazodone HCl (Desyrel) 50 mg PRN QHS PRN PO INSOMNIA Last administered on 06/21 21:14; Start 06/07/17 at 14:45 Hydroxyzine HCl (Atarax) 25 mg PRN Q6HRS PRN PO ANXIETY / AGITATION; Start at 15:00 Mirtazapine (Remeron) 15 mg QHS PO Last administered on 06/22/17 20:10; Start 06/12/17 at 21:00 Divalproex Sodium (Depakote Sprinkles) 125 mg DAILY PO Last administered on 08:22; Start 06/13/17 at 09:00; Stop 06/17/17 at 19:05; Status DC Divalproex Sodium (Depakote Sprinkles) 250 mg QHS PO Last administered on 20:10; Start 06/12/17 at 21:00 Divalproex Sodium (Depakote Sprinkles) 250 mg BID@0900,1400 PO Last administered on 06/22/17 12:58; Start 06/18/17 at 09:00 Quetiapine Fumarate (SEROquel) 25 mg BID@1400,1700 PO Last administered on 06/20 17:24; Start 06/18/17 at 14:00; Stop 06/20/17 at 18:54; Status DC Quetiapine Fumarate (SEROquel) 37.5 mg BID@1400,1700 PO Last administered on 19:20; Start 06/21/17 at 14:00 Sertraline HCl (Zoloft) 75 mg DAILY PO Last administered on 06/22/17 09:00; Start 06/22/17 at 09:00 Active Scripts Active Reported Zoloft (Sertraline Hcl) 25 Mg Tablet 25 Mg PO DAILY PRN Zoloft (Sertraline Hcl) 25 Mg Tablet 25 Mg PO DAILY EXELON 13.3mg/24hr (Rivastigmine) 1 Each Patch.td24 1 Patch TD DAILY Diagnosis: Problems: (1) Anxiety disorder (2) Dementia in Alzheimer's disease with delusions (3) Dementia in Alzheimer's disease with depression (4) Dementia, vascular, with delusions (5) Dementia, vascular, with depression (6) Impulse control disorder ESTEFANIA HOLT MD Jun 22, 2017 23:59
[2017-06-23 06:20] VITALS: BP 141/90
[2017-06-23] MEDS: DIVALPROEX 125 MG CAP.SPRINK PO SCH ×3 (08:18→18:46)
[2017-06-23] MEDS: MEMANTINE 5 MG TABLET. PO SCH ×2 (08:18→18:46)
[2017-06-23] MEDS: CALCIUM CARB/VIT D3 500/200 TABLET PO SCH ×2 (08:18→17:00)
[2017-06-23] MEDS: RIVASTIGMINE 13.3MG PATCH. TD SCH (08:18)
[2017-06-23] MEDS: SERTRALINE 50 MG TABLET. PO SCH (08:19)
[2017-06-23] MEDS: QUEtiapine 25 MG TABLET. PO SCH ×3 (14:32→18:46)
[2017-06-23 16:45] VITALS: BP 112/73
--- NOTE | 2017-06-23 18:09 | PDOC ---
Exam Toni Demential Exam: Toni Note: Please also refer to the separate dictated note~for this date of service dictated separately.~Patient seen individually. Discussed the patient with Nursing staff reviewed the chart.~Reviewed interim history and current functioning. Reviewed vital signs,~Labs/ Radiology~and current medications noted below. Continue current treatment with the changes noted in the dictated addendum note Assessment: Vital Signs: Vital Signs Date Time Temp Pulse Resp B/P (MAP) Pulse Ox O2 Delivery O2 Flow Rate FiO2 06/23/17 16:45 97.9 100 18 112/73 (86) 92 06/20/17 16:27 Room Air I&O Intake and Output 06/24/17 07:00 Intake Total 720 ml Balance 720 ml Intake Oral 720 ml Current Medications: Meds: Current Medications Acetaminophen (Tylenol) 650 mg PRN Q6HRS PRN PO PAIN / TEMP Last administered on 06/17/17 19:48; Start 06/04/17 at 18:00 Multi-Ingredient Ointment (Analgesic [place]) 1 janell PRN QID PRN TP MUSCLE PAIN; Start 06/04/17 at 18:00 Al Hydroxide/Mg Hydroxide (Mylanta Plus Xs) 15 ml PRN AFTMEALHC PRN PO DYSPEPSIA; Start 06/04/17 at 18:00 Magnesium Hydroxide (Milk Of Magnesia) 2,400 mg PRN QHS PRN PO CONSTIPATION; Start 06/04/17 at 18:00 Mirtazapine (Remeron) 7.5 mg QHS PO Last administered on 06/11/17 19:57; Start 06/04/17 at 21:00; Stop 06/12/17 at 14:48; Status DC Sertraline HCl (Zoloft) 50 mg DAILY PO Last administered on 06/21/17 09:37; Start 06/05/17 at 09:00; Stop 06/21/17 at 18:33; Status DC Trazodone HCl (Desyrel) 50 mg PRN QHS PRN PO insomnia Last administered on 19:12; Start 06/05/17 at 00:00; Stop 06/07/17 at 14:43; Status DC Olanzapine (ZyPREXA ZYDIS) 2.5 mg PRN Q2HR PRN PO agitation, psychosis Last administered on 06/15/17 20:38; Start 06/05/17 at 00:00 Rivastigmine (Exelon 13.3mg) 1 patch DAILY TD Last administered on 06/23/17 08 :18; Start 06/05/17 at 09:00 Memantine (Namenda) 5 mg BID PO Last administered on 06/23/17 08:18; Start at 21:00 Quetiapine Fumarate (SEROquel) 25 mg QHS PO Last administered on 06/21/17 19: 32; Start 06/05/17 at 21:00 Quetiapine Fumarate (SEROquel) 12.5 mg BID@1400,1700 PO Last administered on 17:05; Start 06/06/17 at 14:00; Stop 06/12/17 at 14:48; Status DC Calcium/Vitamin D (Oscal D 500mg/ 200uts) 1 tab BIDWMEALS PO Last administered on 06/23/17 08:18; Start 06/06/17 at 17:00 Trazodone HCl (Desyrel) 50 mg PRN QHS PRN PO INSOMNIA Last administered on 06/21 21:14; Start 06/07/17 at 14:45 Hydroxyzine HCl (Atarax) 25 mg PRN Q6HRS PRN PO ANXIETY / AGITATION; Start at 15:00 Mirtazapine (Remeron) 15 mg QHS PO Last administered on 06/22/17 20:10; Start 06/12/17 at 21:00 Divalproex Sodium (Depakote Sprinkles) 125 mg DAILY PO Last administered on 08:22; Start 06/13/17 at 09:00; Stop 06/17/17 at 19:05; Status DC Divalproex Sodium (Depakote Sprinkles) 250 mg QHS PO Last administered on 20:10; Start 06/12/17 at 21:00 Divalproex Sodium (Depakote Sprinkles) 250 mg BID@0900,1400 PO Last administered on 06/23/17 14:34; Start 06/18/17 at 09:00 Quetiapine Fumarate (SEROquel) 25 mg BID@1400,1700 PO Last administered on 06/20 17:24; Start 06/18/17 at 14:00; Stop 06/20/17 at 18:54; Status DC Quetiapine Fumarate (SEROquel) 37.5 mg BID@1400,1700 PO Last administered on 14:32; Start 06/21/17 at 14:00 Sertraline HCl (Zoloft) 75 mg DAILY PO Last administered on 06/23/17 08:19; Start 06/22/17 at 09:00 Active Scripts Active Reported Zoloft (Sertraline Hcl) 25 Mg Tablet 25 Mg PO DAILY PRN Zoloft (Sertraline Hcl) 25 Mg Tablet 25 Mg PO DAILY EXELON 13.3mg/24hr (Rivastigmine) 1 Each Patch.td24 1 Patch TD DAILY Diagnosis: Problems: (1) Impulse control disorder (2) Dementia, vascular, with depression (3) Dementia, vascular, with delusions (4) Dementia in Alzheimer's disease with depression (5) Dementia in Alzheimer's disease with delusions (6) Anxiety disorder ESTEFANIA HOLT MD Jun 23, 2017 18:09
[2017-06-23] MEDS: MIRTAZAPINE 15 MG TABLET PO SCH (18:45)
[2017-06-24 06:28] VITALS: BP 152/99
[2017-06-24] MEDS: CALCIUM CARB/VIT D3 500/200 TABLET PO SCH ×2 (09:03→17:00)
[2017-06-24] MEDS: MEMANTINE 5 MG TABLET. PO SCH ×2 (09:03→20:20)
[2017-06-24] MEDS: SERTRALINE 50 MG TABLET. PO SCH (09:04)
[2017-06-24] MEDS: DIVALPROEX 125 MG CAP.SPRINK PO SCH ×3 (09:04→20:20)
[2017-06-24] MEDS: RIVASTIGMINE 13.3MG PATCH. TD SCH (09:04)
--- NOTE | 2017-06-24 10:37 | PN ---
DATE: 06/20/2017 This late entry date of service 06/20/2017 covers elements not covered in my initial note of 06/20/2017. SUBJECTIVE: The patient was seen individually evening of 06/20/2017. The patient slept 8-3/4 hours previous evening, more confused, anxious, labile in his mood, wanting to leave. On morning of 06/20/2017, he was found by nursing staff to have fecal matter in his hand. Apart of his confusion, he refused his medications, took a shower only if he was able to call his daughter, repeatedly calling out for nursing staff. REVIEW OF SYSTEMS: No CV, , pulmonary, eye, ENT system symptoms on review. Reliability poor. Gait unsteady. MENTAL STATUS EXAM: Oriented to himself and situation. Speech is coherent, abstraction fair. Computation impaired. Language function intact. Short term memory is impaired. Mood and affect remains somewhat anxious, labile. LABORATORY DATA: Reviewed. IMPRESSION: Unchanged from initial note. PLAN: Increase Seroquel from 25 mg twice a day to 37.5 mg twice a day, maintain 25 mg at bedtime. Continue rest of psychotropics mentioned in my initial note. Reviewed drug interactions. Risk/benefit ratio favors no further change. ESTEFANIA HOLT MD DR: ANJALI/taty JOB#: [id number] / [id number]
--- NOTE | 2017-06-24 11:12 | PN ---
DATE: 06/21/2017 This late entry 06/21/2017 covers elements not covered in my initial note of 06/21/2017. SUBJECTIVE: Met with the patient evening of 06/21/2017. The patient has been anxious, somewhat abrasive, arguing, delusional, sarcastic and rude per nursing report, he is reasonably oriented at times and more confused at other times. REVIEW OF SYSTEMS: No CV, , pulmonary, eye, ENT system symptoms on review. Gait unsteady. Reliability poor. MENTAL STATUS EXAM: Oriented to himself and situation. Speech moderate latency. Abstraction fair. Computation impaired. Language function intact. Attention span short. Mood and affect somewhat labile. LABORATORY DATA: Reviewed. IMPRESSION: Unchanged from initial note. PLAN: Increase Zoloft to 75 mg a day. Maintain the rest unchanged. Reviewed drug interactions risk/benefit ratio favors no further change. MAN Alo HOLT MD DR: ANJALI/taty JOB#: [id number] / [id number]
[2017-06-24] MEDS: QUEtiapine 25 MG TABLET. PO SCH ×3 (13:51→20:20)
[2017-06-24 16:07] VITALS: BP 124/77
--- NOTE | 2017-06-24 19:37 | PN ---
DATE: 06/23/2017 This late entry date of service 06/23/2017 covers elements not covered in my initial note of 06/23/2017. SUBJECTIVE: I met with the patient evening of 06/23/2017. He remains somewhat forgetful, pleasant, laid himself on the floor, no injuries were noted. REVIEW OF SYSTEMS: Ambulation impaired, in wheelchair. No CV, , pulmonary, eye, ENT system symptoms on review. A little irritable as I met with him. MENTAL STATUS EXAM: Oriented to himself and situation. Speech coherent, has some latency, abstraction fair, computation impaired, language function intact, attention span short. Mood and affect, despite the above, lability is somewhat improved. Valproic acid level therapeutic at 58. LABORATORY DATA: Reviewed. IMPRESSION: Unchanged from initial note. PLAN: Continue current psychotropics mentioned in my initial note. Reviewed drug interactions. Risk/benefit ratio favors no further change. ESTEFANIA HOLT MD DR: ANJALI/taty JOB#: [id number] / [id number]
--- NOTE | 2017-06-24 20:10 | PDOC ---
Exam Toni Demential Exam: Toni Note: Please also refer to the separate dictated note~for this date of service dictated separately.~Patient seen individually. Discussed the patient with Nursing staff reviewed the chart.~Reviewed interim history and current functioning. Reviewed vital signs,~Labs/ Radiology~and current medications noted below. Continue current treatment with the changes noted in the dictated addendum note Assessment: Vital Signs: Vital Signs Date Time Temp Pulse Resp B/P (MAP) Pulse Ox O2 Delivery O2 Flow Rate FiO2 06/24/17 16:07 98.4 94 16 124/77 (93) 93 06/20/17 16:27 Room Air I&O Intake and Output 06/25/17 07:00 Intake Total 600 ml Balance 600 ml Intake Oral 600 ml Current Medications: Meds: Current Medications Acetaminophen (Tylenol) 650 mg PRN Q6HRS PRN PO PAIN / TEMP Last administered on 06/17/17 19:48; Start 06/04/17 at 18:00 Multi-Ingredient Ointment (Analgesic Chazy) 1 janell PRN QID PRN TP MUSCLE PAIN; Start 06/04/17 at 18:00 Al Hydroxide/Mg Hydroxide (Mylanta Plus Xs) 15 ml PRN AFTMEALHC PRN PO DYSPEPSIA; Start 06/04/17 at 18:00 Magnesium Hydroxide (Milk Of Magnesia) 2,400 mg PRN QHS PRN PO CONSTIPATION; Start 06/04/17 at 18:00 Mirtazapine (Remeron) 7.5 mg QHS PO Last administered on 06/11/17 19:57; Start 06/04/17 at 21:00; Stop 06/12/17 at 14:48; Status DC Sertraline HCl (Zoloft) 50 mg DAILY PO Last administered on 06/21/17 09:37; Start 06/05/17 at 09:00; Stop 06/21/17 at 18:33; Status DC Trazodone HCl (Desyrel) 50 mg PRN QHS PRN PO insomnia Last administered on 19:12; Start 06/05/17 at 00:00; Stop 06/07/17 at 14:43; Status DC Olanzapine (ZyPREXA ZYDIS) 2.5 mg PRN Q2HR PRN PO agitation, psychosis Last administered on 06/15/17 20:38; Start 06/05/17 at 00:00 Rivastigmine (Exelon 13.3mg) 1 patch DAILY TD Last administered on 06/24/17 09 :04; Start 06/05/17 at 09:00 Memantine (Namenda) 5 mg BID PO Last administered on 06/24/17 09:03; Start at 21:00 Quetiapine Fumarate (SEROquel) 25 mg QHS PO Last administered on 06/23/17 18: 46; Start 06/05/17 at 21:00 Quetiapine Fumarate (SEROquel) 12.5 mg BID@1400,1700 PO Last administered on 17:05; Start 06/06/17 at 14:00; Stop 06/12/17 at 14:48; Status DC Calcium/Vitamin D (Oscal D 500mg/ 200uts) 1 tab BIDWMEALS PO Last administered on 06/24/17 09:03; Start 06/06/17 at 17:00 Trazodone HCl (Desyrel) 50 mg PRN QHS PRN PO INSOMNIA Last administered on 06/21 21:14; Start 06/07/17 at 14:45 Hydroxyzine HCl (Atarax) 25 mg PRN Q6HRS PRN PO ANXIETY / AGITATION; Start at 15:00 Mirtazapine (Remeron) 15 mg QHS PO Last administered on 06/23/17 18:45; Start 06/12/17 at 21:00 Divalproex Sodium (Depakote Sprinkles) 125 mg DAILY PO Last administered on 08:22; Start 06/13/17 at 09:00; Stop 06/17/17 at 19:05; Status DC Divalproex Sodium (Depakote Sprinkles) 250 mg QHS PO Last administered on 18:46; Start 06/12/17 at 21:00 Divalproex Sodium (Depakote Sprinkles) 250 mg BID@0900,1400 PO Last administered on 06/24/17 13:50; Start 06/18/17 at 09:00; Stop 06/24/17 at 18: 42; Status DC Quetiapine Fumarate (SEROquel) 25 mg BID@1400,1700 PO Last administered on 06/20 17:24; Start 06/18/17 at 14:00; Stop 06/20/17 at 18:54; Status DC Quetiapine Fumarate (SEROquel) 37.5 mg BID@1400,1700 PO Last administered on 17:26; Start 06/21/17 at 14:00 Sertraline HCl (Zoloft) 75 mg DAILY PO Last administered on 06/24/17 09:04; Start 06/22/17 at 09:00 Active Scripts Active Reported Zoloft (Sertraline Hcl) 25 Mg Tablet 25 Mg PO DAILY PRN Zoloft (Sertraline Hcl) 25 Mg Tablet 25 Mg PO DAILY EXELON 13.3mg/24hr (Rivastigmine) 1 Each Patch.td24 1 Patch TD DAILY Diagnosis: Problems: (1) Anxiety disorder (2) Dementia in Alzheimer's disease with delusions (3) Dementia in Alzheimer's disease with depression (4) Dementia, vascular, with delusions (5) Dementia, vascular, with depression (6) Impulse control disorder ESTEFANIA HOLT MD Jun 24, 2017 20:10
[2017-06-24] MEDS: MIRTAZAPINE 15 MG TABLET PO SCH (20:20)
[2017-06-25] MEDS ORDERED: ACET325T9 PO (00:19)
[2017-06-25] MEDS ORDERED: DIVA125C PO ×2 (00:26→00:27)
[2017-06-25] MEDS ORDERED: MAG30ORA2 PO (00:33)
[2017-06-25] MEDS ORDERED: MAGN2400 PO (00:34)
--- NOTE | 2017-06-25 00:37 | PN ---
DATE: 06/22/2017 This late entry for 06/22/2017 covers elements not covered in my initial note of 06/22/2017. I met with the patient in the evening of 06/22/2017. The patient remains somewhat anxious, withdraws to his room, irritable at times, but redirects, not aggressive, physically. REVIEW OF SYSTEMS: Ambulation impaired, in wheelchair. No CV, , pulmonary, eye, ENT system symptoms on review. MENTAL STATUS EXAM: Oriented to himself and situation. Speech coherent, has some latency, low in volume, often responses monosyllabic. Abstraction fair, computation impaired, language function intact, attention span short, mood and affect somewhat withdrawn. LABORATORY DATA: Reviewed. IMPRESSION: Unchanged from initial note. PLAN: Continue current psychotropics. Reviewed drug interactions. Risk/benefit ratio favors no further change. MAN Alo HOLT MD DR: ANJALI/taty JOB#: [id number] / [id number]
[2017-06-25] MEDS ORDERED: MEMA10TA PO (00:40)
[2017-06-25] MEDS ORDERED: METH29OI TP (00:43)
[2017-06-25] MEDS ORDERED: MIRT15TA3 PO (00:45)
[2017-06-25] MEDS ORDERED: OLAN5TAB5 PO (00:47)
[2017-06-25] MEDS ORDERED: QUET25TA5 PO ×2 (00:48→00:50)
[2017-06-25] MEDS ORDERED: QUET50TA5 PO (00:48)
[2017-06-25] MEDS ORDERED: SERT50TA PO (00:55)
[2017-06-25] MEDS ORDERED: HYDR25TA PO (00:56)
[2017-06-25] MEDS ORDERED: TRAZ50TA15 PO (00:58)
[2017-06-25] MEDS ORDERED: CALC-157 PO (01:08)
[2017-06-25 06:57] VITALS: BP 126/82
[2017-06-25] MEDS: CALCIUM CARB/VIT D3 500/200 TABLET PO SCH (08:11)
[2017-06-25] MEDS: MEMANTINE 5 MG TABLET. PO SCH (08:11)
[2017-06-25] MEDS: SERTRALINE 50 MG TABLET. PO SCH (08:12)
[2017-06-25] MEDS: RIVASTIGMINE 13.3MG PATCH. TD SCH (08:13)
--- NOTE | 2017-06-25 19:18 | PDOC ---
Exam Toni Demential Exam: Toni Note: Please also refer to the separate dictated note~for this date of service dictated separately.~Patient seen individually. Discussed the patient with Nursing staff reviewed the chart.~Reviewed interim history and current functioning. Reviewed vital signs,~Labs/ Radiology~and current medications noted below. Continue current treatment with the changes noted in the dictated addendum note Assessment: Vital Signs: Vital Signs Date Time Temp Pulse Resp B/P (MAP) Pulse Ox O2 Delivery O2 Flow Rate FiO2 06/25/17 06:57 98.5 76 18 126/82 (97) 95 06/20/17 16:27 Room Air I&O Intake and Output 06/26/17 07:00 Intake Total 360 ml Balance 360 ml Intake Oral 360 ml Current Medications: Meds: Current Medications Acetaminophen (Tylenol) 650 mg PRN Q6HRS PRN PO PAIN / TEMP Last administered on 06/17/17 19:48; Start 06/04/17 at 18:00; Stop 06/25/17 at 11:09; Status DC Multi-Ingredient Ointment (Analgesic Preston) 1 janell PRN QID PRN TP MUSCLE PAIN; Start 06/04/17 at 18:00; Stop 06/25/17 at 11:09; Status DC Al Hydroxide/Mg Hydroxide (Mylanta Plus Xs) 15 ml PRN AFTMEALHC PRN PO DYSPEPSIA; Start 06/04/17 at 18:00; Stop 06/25/17 at 11:09; Status DC Magnesium Hydroxide (Milk Of Magnesia) 2,400 mg PRN QHS PRN PO CONSTIPATION; Start 06/04/17 at 18:00; Stop 06/25/17 at 11:09; Status DC Mirtazapine (Remeron) 7.5 mg QHS PO Last administered on 06/11/17 19:57; Start 06/04/17 at 21:00; Stop 06/12/17 at 14:48; Status DC Sertraline HCl (Zoloft) 50 mg DAILY PO Last administered on 06/21/17 09:37; Start 06/05/17 at 09:00; Stop 06/21/17 at 18:33; Status DC Trazodone HCl (Desyrel) 50 mg PRN QHS PRN PO insomnia Last administered on 19:12; Start 06/05/17 at 00:00; Stop 06/07/17 at 14:43; Status DC Olanzapine (ZyPREXA ZYDIS) 2.5 mg PRN Q2HR PRN PO agitation, psychosis Last administered on 06/15/17 20:38; Start 06/05/17 at 00:00; Stop 06/25/17 at 11: 09; Status DC Rivastigmine (Exelon 13.3mg) 1 patch DAILY TD Last administered on 06/25/17 08 :13; Start 06/05/17 at 09:00; Stop 06/25/17 at 11:09; Status DC Memantine (Namenda) 5 mg BID PO Last administered on 06/25/17 08:11; Start at 21:00; Stop 06/25/17 at 11:09; Status DC Quetiapine Fumarate (SEROquel) 25 mg QHS PO Last administered on 06/24/17 20: 20; Start 06/05/17 at 21:00; Stop 06/25/17 at 11:09; Status DC Quetiapine Fumarate (SEROquel) 12.5 mg BID@1400,1700 PO Last administered on 17:05; Start 06/06/17 at 14:00; Stop 06/12/17 at 14:48; Status DC Calcium/Vitamin D (Oscal D 500mg/ 200uts) 1 tab BIDWMEALS PO Last administered on 06/25/17 08:11; Start 06/06/17 at 17:00; Stop 06/25/17 at 11:09; Status DC Trazodone HCl (Desyrel) 50 mg PRN QHS PRN PO INSOMNIA Last administered on 06/21 21:14; Start 06/07/17 at 14:45; Stop 06/25/17 at 11:09; Status DC Hydroxyzine HCl (Atarax) 25 mg PRN Q6HRS PRN PO ANXIETY / AGITATION; Start at 15:00; Stop 06/25/17 at 11:09; Status DC Mirtazapine (Remeron) 15 mg QHS PO Last administered on 06/24/17 20:20; Start 06/12/17 at 21:00; Stop 06/25/17 at 11:09; Status DC Divalproex Sodium (Depakote Sprinkles) 125 mg DAILY PO Last administered on 08:22; Start 06/13/17 at 09:00; Stop 06/17/17 at 19:05; Status DC Divalproex Sodium (Depakote Sprinkles) 250 mg QHS PO Last administered on 20:20; Start 06/12/17 at 21:00; Stop 06/25/17 at 11:09; Status DC Divalproex Sodium (Depakote Sprinkles) 250 mg BID@0900,1400 PO Last administered on 06/24/17 13:50; Start 06/18/17 at 09:00; Stop 06/24/17 at 18: 42; Status DC Quetiapine Fumarate (SEROquel) 25 mg BID@1400,1700 PO Last administered on 06/20 17:24; Start 06/18/17 at 14:00; Stop 06/20/17 at 18:54; Status DC Quetiapine Fumarate (SEROquel) 37.5 mg BID@1400,1700 PO Last administered on 17:26; Start 06/21/17 at 14:00; Stop 06/25/17 at 11:09; Status DC Sertraline HCl (Zoloft) 75 mg DAILY PO Last administered on 06/25/17 08:12; Start 06/22/17 at 09:00; Stop 06/25/17 at 11:09; Status DC Active Scripts Active Reported Calcium 500 + Vit D 200 Tablet (Calcium Carbonate/Vitamin D3) 1 Each Tablet 1 Each PO BID Trazodone Hcl 50 Mg Tablet 50 Mg PO PRN HS Hydroxyzine Hcl 25 Mg Tablet 25 Mg PO PRN Q6HRS PRN Zoloft (Sertraline Hcl) 50 Mg Tablet 75 Mg PO DAILY Seroquel (Quetiapine Fumarate) 25 Mg Tablet 37.5 Mg PO BID 1400, 1700 Seroquel (Quetiapine Fumarate) 25 Mg Tablet 25 Mg PO QHS Zyprexa Zydis (Olanzapine) 5 Mg Tab.rapdis 2.5 Mg PO PRN Q2HR PRN Mirtazapine 15 Mg Tablet 15 Mg PO HS Analgesic Preston (Methyl Salicylate/Menthol) 28 Gm Oint...g. 1 Applic TP PRN QID PRN Namenda (Memantine Hcl) 10 Mg Tablet 5 Mg PO BID Milk Of Magnesia (Magnesium Hydroxide) 2,400 Mg/10 Ml Oral.susp 2,400 Mg PO PRN QHS PRN Mag-Al Plus Xs Suspension (Mag Hydrox/Al Hydrox/Simeth) 30 Ml Oral.susp 15 Ml PO PRN AFTMEAL PRN Depakote Sprinkle (Divalproex Sodium) 125 Mg Cap.sprink 250 Mg PO BID92 Depakote Sprinkle (Divalproex Sodium) 125 Mg Cap.sprink 250 Mg PO HS Tylenol (Acetaminophen) 325 Mg Tablet 650 Mg PO PRN Q6HRS PRN EXELON 13.3mg/24hr (Rivastigmine) 1 Each Patch.td24 1 Patch TD DAILY Diagnosis: Problems: (1) Impulse control disorder (2) Dementia, vascular, with depression (3) Dementia, vascular, with delusions (4) Dementia in Alzheimer's disease with depression (5) Dementia in Alzheimer's disease with delusions (6) Anxiety disorder ESTEFANIA HOLT MD Jun 25, 2017 19:18
--- NOTE | 2017-06-26 07:59 | PN ---
DATE: 06/24/2017 This is a late entry for date of service 06/24/2017 and covers elements not covered in my initial note of 06/24/2017. I met with the patient the evening of 06/24/2017 in his room. He remains somewhat delusional, anxious, irritable at times, leaning to one side in his room, somewhat sedated during the day, questionably due to the daytime Depakote and we will discontinue the 250 b.i.d. and maintain 250 at bedtime. REVIEW OF SYSTEMS: Ambulation impaired, in the wheelchair. No CV, , pulmonary, eye, ENT system symptoms on review. MENTAL STATUS EXAM: Oriented to himself and situation. Speech coherent, has some latency. Abstraction fair, computation impaired, language function intact. Mood and affect somewhat withdrawn. LABORATORY DATA: Reviewed. IMPRESSION: Unchanged from initial note. PLAN: Reduce the Depakote. Maintain the rest of psychotropics unchanged. Drug contractions interactions, risk/benefit ratio favors no further change. ESTEFANIA HOLT MD DR: ANJALI/taty JOB#: [id number] / [id number]
--- NOTE | 2017-06-26 20:07 | DS ---
DATE OF DISCHARGE: 06/25/2017 DISCHARGE SUMMARY/PSYCHIATRIC PROGRESS NOTE This is a late entry for 06/25/2017, covers elements not covered in my initial note of 06/25/2017. REASON FOR ADMISSION: Please refer to the admission history for details. Briefly, the patient is an 82-year-old male admitted from home via the Emergency Room on account of worsening symptoms of depression, having multiple falls, mood swings, being aggressive to family with marked insomnia, increased confusion, twitches and tremors at times. He had failed outpatient psychiatric interventions. SIGNIFICANT FINDINGS AND CLINICAL COURSE: Following admission, the patient was seen daily individually by myself, followed medically per Dr. Moffett/Dr. Rodarte. The patient was noted to be depressed, somewhat paranoid with short-term memory deficits abrasive, aggressive. Adjustments were made in his psychotropics. He seemed to respond to a combination of Exelon patch 13.3 mg a day, Zoloft was increased to 75 mg a day, Remeron 15 mg p.o. at bedtime, trazodone 50 mg at bedtime and may repeat x 1 for insomnia, Zyprexa p.r.n., Namenda 5 mg b.i.d., Seroquel 25 mg at bedtime and 37.5 mg at 1400 hours and 1700 hours, and Atarax p.r.n. He was on Depakote 250 mg b.i.d. and 250 mg at night, but he was somewhat sedated and the daytime dosage 250 mg at 0900 hours and 1400 hours were discontinued prior to discharge and 250 mg at bedtime was maintained. Valproic acid level was therapeutic at 58 on the full dosage of 250 mg 3 times a day and it is likely to be subtherapeutic with the reduction noted above, but once the sedation improves and if behaviors resurface with impulse control problems, perhaps the daytime Depakote would need to be restarted. CONDITION AT DISCHARGE: Improved. REVIEW OF SYSTEMS: Ambulation impaired. No CV, , pulmonary, eye, ENT system symptoms on review. MENTAL STATUS EXAM: Oriented to himself and situation. Speech has some latency, coherent, often responses monosyllabic. Abstraction fair, computation impaired, language function intact, attention span short, mood and affect somewhat withdrawn. LABORATORY DATA: Reviewed. IMPRESSION: Major depressive disorder with psychotic features in partial remission; major neurocognitive disorder, early Alzheimer, vascular with depression, delusions versus mild cognitive impairment; anxiety disorder, unspecified; impulse control disorder, unspecified. DISCHARGE MEDICATIONS: Please refer to the [facility]. DISCHARGE INSTRUCTIONS: Outpatient psychiatric and medical followup at the correction. Time for discharge day management greater than 30 minutes. MAN Alo HOLT MD DR: ANJALI/taty JOB#: [id number] / [id number]
== END 2017-06-25 10:00 | DRG 884 ==
LOC: ER 15:14 → GEROPSY 16:55
PROVIDERS: ADMIT Psychiatry & Neurology Psychiatry; ATTEND Psychiatry & Neurology Psychiatry
DX: F01.51 Vascular dementia, unspecified severity, with behavioral disturbance (principal); F32.3 Major depressive disorder, single episode, severe with psychotic features; F02.81 Dementia in other diseases classified elsewhere, unspecified severity, with behavioral disturbance; G30.0 Alzheimer's disease with early onset; E55.9 Vitamin D deficiency, unspecified; E87.6 Hypokalemia; F41.9 Anxiety disorder, unspecified; F63.9 Impulse disorder, unspecified; G47.00 Insomnia, unspecified; R29.6 Repeated falls; R32 Unspecified urinary incontinence; Z79.899 Other long term (current) drug therapy; Z81.8 Family history of other mental and behavioral disorders; Z82.0 Family history of epilepsy and other diseases of the nervous system; Z86.73 Personal history of transient ischemic attack (TIA), and cerebral infarction without residual deficits; Z87.891 Personal history of nicotine dependence; Z90.49 Acquired absence of other specified parts of digestive tract; Z91.81 History of falling; Z98.42 Cataract extraction status, left eye; Z98.41 Cataract extraction status, right eye
CPT/HCPCS: 36415; 70450; 80053; 80061; 80164; 81001; 82306; 82607; 83036; 83540; 83550; 83735; 84436; 84443; 84480; 85025; 93005; 97116; 97530; 99285-25